=== PATIENT | female | born 1975 | race Caucasian/White ===

== ENCOUNTER 2018-12-13 09:33 | Emergency (ER) | payer BC, SELFPAY ==
[2018-12-13] VITALS (46 sets, daily range): BP systolic 113–172; BP diastolic 66–120; PULSE 70–108; RESP 7–29; TEMP 36.8–37.2; O2SAT 96–100
--- NOTE | 2018-12-13 09:47 | W.ED.GENAD ---
Discharge Plan Disposition Patient Disposition: HOME Condition: Stable Discharge Details Chief Complaint: Chest Pain Clinical Impression: Chest pain, Arm pain, Leg pain Primary Care Provider: Cristine Howard ED Provider: Leigh Watkins Home Meds and New Rx's Prescriptions: No Action No Known Home Meds RF: 0 Discharge Instructions Instructions: Chest Pain (ED), Leg Pain (ED) Additional Instructions: Please return immediately to the emergency department if you develop any new or worsening symptoms or if you become otherwise concerned. It is extremely important that you make an appointment to be seen soon as possible by a neurologist at [facility], by your primary care doctor, and also that you have an outpatient stress test performed this week as we discussed. Referrals: Cristine Howard MD, [place] [Primary Care Provider] - Discharge Data Discharge Date/Time-TO BE ENTERED AT DEPARTURE: 12/13/18 14:40 Medical Decision Making Kim Fallon is a 33-year-old woman without history of major medical problems who presented to the emergency department complaining left upper arm pain, left lateral chest pain, and left medial thigh pain occurring concurrently and intermittently over the past 2 weeks, nonexertional. On exam patient is well and nontoxic appearing. Benign cardiopulmonary exam. Benign exam of the extremities. Nonfocal neurologic exam. Concern for ACS versus PE versus musculoskeletal etiology versus other. Exam/history is not consistent with acute aortic pathology, septic joint, sepsis, CVA. I discussed the patient with Dr. Coffey neurology, who agreed with plan for MRI of the brain given unilateral symptoms affecting 2 limbs, however I do have a low suspicion for neurologic process given history and exam. Plan for EKG, chest x-ray, screening labs, telemetry. If initial work-up negative, plan for repeat troponin and repeat EKG. Also plan for aspirin nitroglycerin. Patient refuses test, states that she has an IUD and her has a vasectomy, declines to have this testing done by . Patient also declines to have MRI, states that she had vague neurologic symptoms several years ago for which she was evaluated at [facility], negative results at that time. Patient reports that she would rather follow-up with neurology at [facility]. Patient received nitroglycerin, reports that there was no change in her symptoms and declines further nitroglycerin. She declines other pain medication at this time. We will continue to monitor. X-ray negative, troponin negative, will repeat troponin and EKG. Repeat troponin negative, first EKG with [address] depression V3 V4 resolved on repeat EKG, suspect rate related given no change in patient symptoms and patient initially tachycardic. Patient with low risk for ACS. Plan for outpatient stress testing, patient placed on list for preapproval for stress testing, stress test ordered. Lengthy discussion with patient regarding return to emergency department cautions, importance of outpatient follow-up, and home care. Patient was discharged home with a clear plan for outpatient follow-up. Patient verbalized understanding plan was amenable. All questions were answered. Medical Records Medical records reviewed: Yes I reviewed the patient's medical records. Imaging Data Radiologic Study: Attestation: I personally reviewed and interpreted this imaging study as follows: Radiologist's impression: PA AND LATERAL CHEST: Comparison is made with 10/08/15. The heart is normal in size. The lungs are clear. The mediastinal structures and pleura appear intact. CONCLUSION: Normal chest. Lab Data Lab results reviewed: Yes I reviewed the patient's lab results. Laboratory Tests Range/Units 12/13/18 12/13/18 12/13/18 09:50 09:50 09:50 WBC (4.4-10.8) k/cumm 7.05 RBC (4.00-5.20) m/cumm 5.02 Hgb (12.0-15.5) g/dL 14.6 Hct (36.0-46.0) % 43.6 MCV (80-95) fL 86.9 MCH (27.0-33.0) pg 29.1 MCHC (32.0-36.0) g/dL 33.5 RDW (11.7-14.6) % 12.5 Plt Count (130-400) x1000/uL 330 MPV (8.0-11.0) fL 9.1 Immature Gran % 0.1 Neutrophils % 64.9 Lymphocytes % 28.9 Monocytes % 5.2 Eosinophils % 0.6 Basophils % 0.3 Absolute Neutrophils (1.2-6.7) k/cumm 4.57 Absolute Lymphocytes (1.2-3.4) k/cumm 2.04 Absolute Monocytes (0.11-0.7) k/cumm 0.37 Absolute Eosinophils (0.0-0.7) k/cumm 0.04 Absolute Basophils (0.0-0.2) k/cumm 0.02 D-Dimer (<500) ng/mlFEU 272 Sodium (136-145) mmol/L 139 Potassium (3.5-5.1) mmol/L 3.6 Chloride (98-107) mmol/L 102 Carbon Dioxide (21.0-32.0) mmol/L 28.7 Anion Gap (3-11) mmol/L 8.3 BUN (7-18) mg/dL 14 Creatinine (0.55-1.02) mg/dL 0.89 Estimated GFR/1.73 m2 (mL/min/1.73m2) >= 60.00 Glucose (70-100) mg/dL 89 Calcium (8.5-10.1) mg/dL 8.9 Magnesium (1.8-2.4) mg/dL 1.9 Total Bilirubin (0.2-1.0) mg/dL 0.6 AST (15-37) U/L 15 ALT (12-78) U/L 18 Alkaline Phosphatase (46-116) U/L 62 Troponin I (0.00-0.06) ng/mL < 0.02 NT-Pro-B Natriuret Pep ( - 299) pg/mL 115 Total Protein (6.4-8.2) g/dL 7.5 Albumin (3.4-5.0) g/dL 4.4 Urine Color (Yellow) Urine Clarity Urine pH (5-8) Ur Specific [place] (1.005-1.025) Urine Protein (Negative) mg/dL Urine Ketones (Negative) mg/dL Urine Blood (Negative) Urine Nitrite (Negative) Urine Bilirubin (Negative) Urine Urobilinogen (Up TO 0.2) EU/dL Ur Leukocyte Esterase (Negative) Urine Glucose (Negative) mg/dL Range/Units 12/13/18 12/13/18 11:30 13:00 WBC (4.4-10.8) k/cumm RBC (4.00-5.20) m/cumm Hgb (12.0-15.5) g/dL Hct (36.0-46.0) % MCV (80-95) fL MCH (27.0-33.0) pg MCHC (32.0-36.0) g/dL RDW (11.7-14.6) % Plt Count (130-400) x1000/uL MPV (8.0-11.0) fL Immature Gran % Neutrophils % Lymphocytes % Monocytes % Eosinophils % Basophils % Absolute Neutrophils (1.2-6.7) k/cumm Absolute Lymphocytes (1.2-3.4) k/cumm Absolute Monocytes (0.11-0.7) k/cumm Absolute Eosinophils (0.0-0.7) k/cumm Absolute Basophils (0.0-0.2) k/cumm D-Dimer (<500) ng/mlFEU Sodium (136-145) mmol/L Potassium (3.5-5.1) mmol/L Chloride (98-107) mmol/L Carbon Dioxide (21.0-32.0) mmol/L Anion Gap (3-11) mmol/L BUN (7-18) mg/dL Creatinine (0.55-1.02) mg/dL Estimated GFR/1.73 m2 (mL/min/1.73m2) Glucose (70-100) mg/dL Calcium (8.5-10.1) mg/dL Magnesium (1.8-2.4) mg/dL Total Bilirubin (0.2-1.0) mg/dL AST (15-37) U/L ALT (12-78) U/L Alkaline Phosphatase (46-116) U/L Troponin I (0.00-0.06) ng/mL < 0.02 NT-Pro-B Natriuret Pep ( - 299) pg/mL Total Protein (6.4-8.2) g/dL Albumin (3.4-5.0) g/dL Urine Color (Yellow) Yellow Urine Clarity Clear Urine pH (5-8) 6.5 Ur Specific [place] (1.005-1.025) 1.015 Urine Protein (Negative) mg/dL Negative Urine Ketones (Negative) mg/dL Negative Urine Blood (Negative) Negative Urine Nitrite (Negative) Negative Urine Bilirubin (Negative) Negative Urine Urobilinogen (Up TO 0.2) EU/dL 0.2 Ur Leukocyte Esterase (Negative) Negative Urine Glucose (Negative) mg/dL Negative ECG Data Attestation: I personally reviewed and interpreted this ECG (s) as follows: Interpretation: EKG shows ST 109, nl axis, STD 1mm V3, V4, non-diagnostic EKG EKG #2 shows sinus rhythm 78, nl axis, ST changes resolved HPI General Mode of arrival: ambulatory. Date/Time Provider Initiated Documentation: 12/13/18 09:47. Limitations to Documentation: no limitations. Information obtained by: patient, RN notes reviewed and old records reviewed. HPI Narrative: Kim Fallon is a 43 y/o woman without reported h/o medical problems presenting to the emergency department with left arm pain, left chest pain. Pt reports that she has had two weeks of intermittent left arm and left chest pain. Pt reports that pain is in her left upper arm and left lateral chest, lateral to breast. Pain is heaviness/aching sensation. Pain is non-exertional, non-pleuritic. No known modifiers. Pt reports that she wakes up in the morning with pain, and it lasts for hours at a time. Has been persistent since waking this am. She reports some overall improvement since onset two weeks ago. Pt also reports that she has had some heaviness in her left medial thigh as well that seems to coincide with arm pain. No modifiers. No known trauma. No other recent illness, has been eating and drinking as usual. No recent travel. Related Data Home Medications Medication Instructions Recorded Confirmed Unknown [No Known Home Meds] 12/13/18 12/13/18 Allergies Allergy/AdvReac Type Severity Reaction Status Date / Time No Known Allergies Allergy Unverified 12/13/18 09:56 Review of Systems Review of Systems Constitutional: denies fevers Eyes: denies eye pain ENT: denies facial pain, dental pain, sore throat Cardiovascular: denies edema, reports chest pain Respiratory: denies SOB, cough GI: denies abdominal pain, vomiting, diarrhea : denies flank pain MSK: denies back pain, neck pain, arthralgias, reports myalgias left arm and left thigh Skin: denies rash, swelling Neuro: denies headaches, numbness, weakness PFSH Social History Smoking/Tobacco Use Status: Never Alcohol Intake: current Alcohol Intake frequency: a few times a month Drug use: Never Do you feel safe at home: Yes Do you feel safe in your relationship?: Yes Exam Narrative Exam Narrative: Constitutional: well and [id number], pleasant, conversing normally HENT: head atraumatic/normocephalic/normal inspection, mucous membranes moist Eyes: conjunctiva normal, sclera normal, pupils 3mm b/l Neck: no stridor, normal ROM, trachea midline Chest: normal inspection, no TTP in area of pain lateral to left breast, no overlying skin changes Resp: normal work of breathing, LCTAB Cardio: normal rate, normal rhythm, no murmur appreciated GI: abdomen soft, non-tender, non-distended Back: normal inspection, no rash Skin: warm, dry, normal color, no rash Neuro: alert, not altered, cranial nerves grossly non-focal, normal tone, motor 5 out of 5 throughout, normal sensation Ext: no edema legs or thighs, no edema of the left arm, DP and radial pulses intact and symmetric, no tenderness to palpation of the left thigh in area of pain, left arm nontender to palpation, range of motion left arm and leg intact and symmetric Psych: normal mood, normal affect, normal behavior
--- NOTE | 2018-12-13 10:05 | DI.RAD_ITS ---
SYMPTOM/DIAGNOSIS: CHEST PAIN PA AND LATERAL CHEST: Comparison is made with 10/08/15. The heart is normal in size. The lungs are clear. The mediastinal structures and pleura appear intact. CONCLUSION: Normal chest.
[2018-12-13 10:14] LABS: Abs Immature Grans 0.01 k/cumm (0.0-0.09); Absolute Basophil Count 0.02 k/cumm (0.0-0.2); Absolute Eosinophil Count 0.04 k/cumm (0.0-0.7); Absolute Lymphocyte Count 2.04 k/cumm (1.2-3.4); Absolute Monocyte Count 0.37 k/cumm (0.11-0.7); Absolute Neutrophil Count 4.57 k/cumm (1.2-6.7); Basophils % 0.3; Eosinophils % 0.6; HCT 43.6 % (36.0-46.0); HGB 14.6 g/dL (12.0-15.5); Immature Grans % 0.1; Lymphocytes % 28.9; Mean Corp. HGB Concentration 33.5 g/dL (32.0-36.0); Mean Corpuscular Hemoglobin 29.1 pg (27.0-33.0); Mean Corpuscular Volume 86.9 fL (80-95); Mean Platelet Volume 9.1 fL (8.0-11.0); Monocytes % 5.2; Neutrophils % 64.9; Platelet Count 330 x1000/uL (130-400); RBC 5.02 m/cumm (4.00-5.20); RBC Distribution Width 12.5 % (11.7-14.6); White Blood Cell Count 7.05 k/cumm (4.4-10.8)
[2018-12-13 10:36] LABS: ALT 18 U/L (12-78); AST 15 U/L (15-37); Albumin 4.4 g/dL (3.4-5.0); Alkaline Phosphatase 62 U/L (46-116); Anion Gap 8.3 mmol/L (3-11); BUN 14 mg/dL (7-18); Bilirubin, Total 0.6 mg/dL (0.2-1.0); CO2 28.7 mmol/L (21.0-32.0); CREATININE 0.89 mg/dL (0.55-1.02); Calcium 8.9 mg/dL (8.5-10.1); Chloride 102 mmol/L (98-107); Glucose 89 mg/dL (70-100); Magnesium 1.9 mg/dL (1.8-2.4); NT-proBNP 115 pg/mL; Potassium 3.6 mmol/L (3.5-5.1); Sodium 139 mmol/L (136-145); Total Protein 7.5 g/dL (6.4-8.2)
[2018-12-13] MEDS: Aspirin 81 MG CHEW 324 MG CH (10:37)
[2018-12-13 10:38] LABS: Troponin I < 0.02 ng/mL (0.00-0.06)
[2018-12-13 10:44] LABS: D-Dimer 272 ng/mlFEU (<500)
[2018-12-13 11:37] LABS: Bilirubin Negative (Negative); Blood Negative (Negative); Clarity Clear; Glucose Negative (Negative); Ketones Negative (Negative); Leukocyte Esterase Negative (Negative); Nitrite Negative (Negative); Specific Gravity 1.015 (1.005-1.025); Urobilinogen 0.2 EU/dL (Up TO 0.2); pH 6.5 (5-8)
[2018-12-13 13:24] LABS: Troponin I < 0.02 ng/mL (0.00-0.06)
--- NOTE | 2018-12-14 21:49 | ED.GENADUL_ITS ---
Discharge Plan Disposition Patient Disposition: HOME Condition: Stable Discharge Details Chief Complaint: Chest Pain Clinical Impression: Chest pain, Arm pain, Leg pain Primary Care Provider: Cristine Howard ED Provider: Leigh Watkins Home Meds and New Rx's Prescriptions: No Action No Known Home Meds RF: 0 Discharge Instructions Instructions: Chest Pain (ED), Leg Pain (ED) Additional Instructions: Please return immediately to the emergency department if you develop any new or worsening symptoms or if you become otherwise concerned. It is extremely important that you make an appointment to be seen soon as possible by a neurologist at [facility], by your primary care doctor, and also that you have an outpatient stress test performed this week as we discussed. Referrals: Cristine Howard MD, [place] [Primary Care Provider] - Discharge Data Discharge Date/Time-TO BE ENTERED AT DEPARTURE: 12/13/18 14:40 Medical Decision Making Kim Fallon is a 33-year-old woman without history of major medical problems who presented to the emergency department complaining left upper arm pain, left lateral chest pain, and left medial thigh pain occurring concurrently and intermittently over the past 2 weeks, nonexertional. On exam patient is well and nontoxic appearing. Benign cardiopulmonary exam. Benign exam of the extremities. Nonfocal neurologic exam. Concern for ACS versus PE versus musculoskeletal etiology versus other. Exam/history is not consistent with acute aortic pathology, septic joint, sepsis, CVA. I discussed the patient with Dr. Coffey neurology, who agreed with plan for MRI of the brain given unilateral symptoms affecting 2 limbs, however I do have a low suspicion for neurologic process given history and exam. Plan for EKG, chest x-ray, screening labs, telemetry. If initial work-up negative, plan for repeat troponin and repeat EKG. Also plan for aspirin nitroglycerin. Patient refuses test, states that she has an IUD and her has a vasectomy, declines to have this testing done by . Patient also declines to have MRI, states that she had vague neurologic symptoms several years ago for which she was evaluated at [facility], negative results at that time. Patient reports that she would rather follow-up with neurology at [facility]. Patient received nitroglycerin, reports that there was no change in her symptoms and declines further nitroglycerin. She declines other pain medication at this time. We will continue to monitor. X-ray negative, troponin negative, will repeat troponin and EKG. Repeat troponin negative, first EKG with [address] depression V3 V4 resolved on repeat EKG, suspect rate related given no change in patient symptoms and patient initially tachycardic. Patient with low risk for ACS. Plan for outpatient stress testing, patient placed on list for preapproval for stress testing, stress test ordered. Lengthy discussion with patient regarding return to emergency department cautions, importance of outpatient follow-up, and home care. Patient was discharged home with a clear plan for outpatient follow-up. Patient verbalized understanding plan was amenable. All questions were answered. Medical Records Medical records reviewed: Yes I reviewed the patient's medical records. Imaging Data Radiologic Study: Attestation: I personally reviewed and interpreted this imaging study as follows: Radiologist's impression: PA AND LATERAL CHEST: Comparison is made with 10/08/15. The heart is normal in size. The lungs are clear. The mediastinal structures and pleura appear intact. CONCLUSION: Normal chest. Lab Data Lab results reviewed: Yes I reviewed the patient's lab results. Laboratory Tests Range/Units 12/13/18 12/13/18 12/13/18 09:50 09:50 09:50 WBC (4.4-10.8) k/cumm 7.05 RBC (4.00-5.20) m/cumm 5.02 Hgb (12.0-15.5) g/dL 14.6 Hct (36.0-46.0) % 43.6 MCV (80-95) fL 86.9 MCH (27.0-33.0) pg 29.1 MCHC (32.0-36.0) g/dL 33.5 RDW (11.7-14.6) % 12.5 Plt Count (130-400) x1000/uL 330 MPV (8.0-11.0) fL 9.1 Immature Gran % 0.1 Neutrophils % 64.9 Lymphocytes % 28.9 Monocytes % 5.2 Eosinophils % 0.6 Basophils % 0.3 Absolute Neutrophils (1.2-6.7) k/cumm 4.57 Absolute Lymphocytes (1.2-3.4) k/cumm 2.04 Absolute Monocytes (0.11-0.7) k/cumm 0.37 Absolute Eosinophils (0.0-0.7) k/cumm 0.04 Absolute Basophils (0.0-0.2) k/cumm 0.02 D-Dimer (<500) ng/mlFEU 272 Sodium (136-145) mmol/L 139 Potassium (3.5-5.1) mmol/L 3.6 Chloride (98-107) mmol/L 102 Carbon Dioxide (21.0-32.0) mmol/L 28.7 Anion Gap (3-11) mmol/L 8.3 BUN (7-18) mg/dL 14 Creatinine (0.55-1.02) mg/dL 0.89 Estimated GFR/1.73 m2 (mL/min/1.73m2) >= 60.00 Glucose (70-100) mg/dL 89 Calcium (8.5-10.1) mg/dL 8.9 Magnesium (1.8-2.4) mg/dL 1.9 Total Bilirubin (0.2-1.0) mg/dL 0.6 AST (15-37) U/L 15 ALT (12-78) U/L 18 Alkaline Phosphatase (46-116) U/L 62 Troponin I (0.00-0.06) ng/mL < 0.02 NT-Pro-B Natriuret Pep ( - 299) pg/mL 115 Total Protein (6.4-8.2) g/dL 7.5 Albumin (3.4-5.0) g/dL 4.4 Urine Color (Yellow) Urine Clarity Urine pH (5-8) Ur Specific [place] (1.005-1.025) Urine Protein (Negative) mg/dL Urine Ketones (Negative) mg/dL Urine Blood (Negative) Urine Nitrite (Negative) Urine Bilirubin (Negative) Urine Urobilinogen (Up TO 0.2) EU/dL Ur Leukocyte Esterase (Negative) Urine Glucose (Negative) mg/dL Range/Units 12/13/18 12/13/18 11:30 13:00 WBC (4.4-10.8) k/cumm RBC (4.00-5.20) m/cumm Hgb (12.0-15.5) g/dL Hct (36.0-46.0) % MCV (80-95) fL MCH (27.0-33.0) pg MCHC (32.0-36.0) g/dL RDW (11.7-14.6) % Plt Count (130-400) x1000/uL MPV (8.0-11.0) fL Immature Gran % Neutrophils % Lymphocytes % Monocytes % Eosinophils % Basophils % Absolute Neutrophils (1.2-6.7) k/cumm Absolute Lymphocytes (1.2-3.4) k/cumm Absolute Monocytes (0.11-0.7) k/cumm Absolute Eosinophils (0.0-0.7) k/cumm Absolute Basophils (0.0-0.2) k/cumm D-Dimer (<500) ng/mlFEU Sodium (136-145) mmol/L Potassium (3.5-5.1) mmol/L Chloride (98-107) mmol/L Carbon Dioxide (21.0-32.0) mmol/L Anion Gap (3-11) mmol/L BUN (7-18) mg/dL Creatinine (0.55-1.02) mg/dL Estimated GFR/1.73 m2 (mL/min/1.73m2) Glucose (70-100) mg/dL Calcium (8.5-10.1) mg/dL Magnesium (1.8-2.4) mg/dL Total Bilirubin (0.2-1.0) mg/dL AST (15-37) U/L ALT (12-78) U/L Alkaline Phosphatase (46-116) U/L Troponin I (0.00-0.06) ng/mL < 0.02 NT-Pro-B Natriuret Pep ( - 299) pg/mL Total Protein (6.4-8.2) g/dL Albumin (3.4-5.0) g/dL Urine Color (Yellow) Yellow Urine Clarity Clear Urine pH (5-8) 6.5 Ur Specific [place] (1.005-1.025) 1.015 Urine Protein (Negative) mg/dL Negative Urine Ketones (Negative) mg/dL Negative Urine Blood (Negative) Negative Urine Nitrite (Negative) Negative Urine Bilirubin (Negative) Negative Urine Urobilinogen (Up TO 0.2) EU/dL 0.2 Ur Leukocyte Esterase (Negative) Negative Urine Glucose (Negative) mg/dL Negative ECG Data Attestation: I personally reviewed and interpreted this ECG (s) as follows: Interpretation: EKG shows ST 109, nl axis, STD 1mm V3, V4, non-diagnostic EKG EKG #2 shows sinus rhythm 78, nl axis, ST changes resolved HPI General Mode of arrival: ambulatory . Date/Time Provider Initiated Documentation: 12/13/18 09:47 . Limitations to Documentation: no limitations . Information obtained by: patient, RN notes reviewed and old records reviewed . HPI Narrative: Kim Fallon is a 43 y/o woman without reported h/o medical problems presenting to the emergency department with left arm pain, left chest pain. Pt reports that she has had two weeks of intermittent left arm and left chest pain. Pt reports that pain is in her left upper arm and left lateral chest, lateral to breast. Pain is heaviness/aching sensation. Pain is non- exertional, non-pleuritic. No known modifiers. Pt reports that she wakes up in the morning with pain, and it lasts for hours at a time. Has been persistent s wicho waking this am. She reports some overall improvement since onset two weeks ago. Pt also reports that she has had some heaviness in her left medial thigh as well that seems to coincide with arm pain. No modifiers. No known trauma. No other recent illness, has been eating and drinking as usual. No recent travel. Related Data Home Medications Medication Instructions Recorded Confirmed Unknown [No Known Home Meds] 12/13/18 12/13/18 Allergies Allergy/AdvReac Type Severity Reaction Status Date / Time No Known Allergies Allergy Unverified 12/13/18 09:56 Review of Systems Review of Systems Constitutional: denies fevers Eyes: denies eye pain ENT: denies facial pain, dental pain, sore throat Cardiovascular: denies edema, reports chest pain Respiratory: denies SOB, cough GI: denies abdominal pain, vomiting, diarrhea : denies flank pain MSK: denies back pain, neck pain, arthralgias, reports myalgias left arm and left thigh Skin: denies rash, swelling Neuro: denies headaches, numbness, weakness PFSH Social History Smoking/Tobacco Use Status: Never Alcohol Intake: current Alcohol Intake frequency: a few times a month Drug use: Never Do you feel safe at home: Yes Do you feel safe in your relationship?: Yes Exam Narrative Exam Narrative: Constitutional: well and [id number], pleasant, conversing normally HENT: head atraumatic/normocephalic/normal inspection, mucous membranes moist Eyes: conjunctiva normal, sclera normal, pupils 3mm b/l Neck: no stridor, normal ROM, trachea midline Chest: normal inspection, no TTP in area of pain lateral to left breast, no overlying skin changes Resp: normal work of breathing, LCTAB Cardio: normal rate, normal rhythm, no murmur appreciated GI: abdomen soft, non-tender, non-distended Back: normal inspection, no rash Skin: warm, dry, normal color, no rash Neuro: alert, not altered, cranial nerves grossly non-focal, normal tone, motor 5 out of 5 throughout, normal sensation Ext: no edema legs or thighs, no edema of the left arm, DP and radial pulses intact and symmetric, no tenderness to palpation of the left thigh in area of pain, left arm nontender to palpation, range of motion left arm and leg intact and symmetric Psych: normal mood, normal affect, normal behavior
== END 2018-12-13 14:40 | disposition home or self-care (01) ==
PROVIDERS: Emergency Provider Student in an Organized Health Care Education/Training Program; PCP Family Medicine
DX: S52.572A Other intraarticular fracture of lower end of left radius, initial encounter for closed fracture (principal); I95.9 Hypotension, unspecified; I44.4 Left anterior fascicular block; I47.1 Supraventricular tachycardia; I10 Essential (primary) hypertension
CPT/HCPCS: 25600; 36415; 51701; 80053; 93005; 99285; 71046; 81003; 83735; 83880; 84484; 85025; 85379; 93010

== ENCOUNTER 2018-12-23 00:46 | Outpatient (CLI) | payer BC, SELFPAY ==
--- NOTE | 2018-12-23 09:30 | ETT_ITS ---
*[facility]* *[facility]* [address] [place] [address] Stress Electrocardiography Jose protocol Date of study: 12/23/2018 *PATIENT PRESENTATION* Height: 172.7cm (68in) Blood Pressure: Weight: 63.6kg (140lb) BSA: 1.75m^2 Referring physician: Leigh Watkins Ordering physician: Leigh Watkins Impressions: Normal study after maximal exercise. Summary: 1. Stress ECG conclusions: The stress ECG is negative. 2. Stress: There is a normal resting blood pressure with an appropriate response to stress. The patient experienced no chest pain during stress. Exercise capacity is above normal for age. Indication: R07.9. History: REASON FOR TESTING: ER VISIT FOR LEFT UPPER ARM PAIN, LEFT LATERAL CHEST PAIN AND LEFT MEDIAL THIGH PAIN. NM RULED OUT AT THAT TIME. PT DESCRIBED THE PAIN TO BE MORE PRESSURE THAN PAIN. THE SYMPTOMS HAVE BEEN INTERMITTANT FOR SEVERAL DAYS BEFORE THE ER VIST, AND CONTINUE TO BE PRESENT WITH VARYING INTENSITY. PMH: VAGUE NEUROLOGIC COMPLAINTS [place] [facility] [place]. FAMILY HX: FATHER- CVA IN 50'S, HYPERTENSION. SON- 13 YO WITH HYPERTENSION. SMOKING: NEVER. EXCERCISE: WALKS OR HIKES 2-3 DAYS/WEEK FOR 45 MINS. NO AVAILABLE CHOLESTEROL DATA. Risk factors: Family history of coronary artery disease. ALLERGIES: NKDA MEDICATIONS: NONE. Protocol: Jose protocol. Baseline ECG: LAST EKG 12/13/18- SINUS RHYTHM. TODAY'S EKG- SINUS RHYTHM HR 75. Stress protocol: + +---+ +----+ !Stage !HR !BP (mmHg) !Sat ! + +---+ +----+ !Baseline supine !75 !110/80 (90) !----! + +---+ +----+ !Baseline standing !88 !112/80 (91) !----! + +---+ +----+ !Stage I; 1.7mph, 10degrees; 3 min !101!120/88 (99) !100%! + +---+ +----+ !Stage II; 2.5mph, 12degrees; 3 min !128!122/88 (99) !----! + +---+ +----+ !Stage III; 3.4mph, 14degrees; 3 min!148!134/90 (105)!96% ! + +---+ +----+ !Recovery; 1 min !176!150/70 (97) !100%! + +---+ +----+ !Recovery; 3 min !101!138/80 (99) !----! + +---+ +----+ !Recovery; 6 min !94 !124/80 (95) !----! + +---+ +----+ * Stress results: Maximal heart rate during stress was 179bpm (102% of maximal predicted heart rate). The maximal predicted heart rate was 175bpm. There is a normal resting blood pressure with an appropriate response to stress. The rate-pressure product for the peak heart rate and blood pressure was 35355wd Hg/min. The patient experienced no chest pain during stress. Exercise capacity is above normal for age. Stress ECG: EXCERCISE TESTING ENDED IN 10 MINS, 22 SECS DUE TO MAX HR ACHIEVED AND FATIGUE . MAX HR WAS 179, 102% OF TARGET. NORMAL BLOOD PRESSURE RESPONSE. METS:12.39 ECTOPY: NONE ANGINA: NO REPORTED CHEST PAIN OR PRESSURE. ISCHEMIA: NO ISCHEMIC CHANGES NOTED. FUNCTIONAL CAPACITY: ABOVE AVERAGE CAPACITY. The stress ECG is negative. Study data: Hoa rTejo MD supervised and was readily available during the procedure. This study was interpreted by [facility]. Study status: Routine. Consent: The risks, benefits, and alternatives to the procedure were explained to the patient and informed consent was obtained. Procedure: Initial setup. A baseline ECG was recorded. Surface ECG leads and manual cuff blood pressure measurements were monitored. Heart sounds: Normal. Lung sounds: Normal. Treadmill exercise testing was performed using the Jose protocol. Study completion: The patient tolerated the procedure well and was discharged from the lab. Discharge: The patient left the laboratory in stable condition. Birthdate: Patient birthdate: 1975. Sex: Gender: female. Study date: Study date: 12/23/2018. Study time: 00:01 AM. Signature Documentation: The Stress ECG portion of this study was interpreted by Hoa Trejo MD. Electronically signed by oHa Trejo 12/23/2018 10:38
== END 2018-12-23 01:06 ==
PROVIDERS: PCP Family Medicine; Visit Provider Student in an Organized Health Care Education/Training Program
DX: R07.9 Chest pain, unspecified (principal)
CPT/HCPCS: 93017

== ENCOUNTER 2020-11-19 01:40 | Outpatient (CLI) | payer BC, SELFPAY ==
--- NOTE | 2020-11-19 09:00 | DI.MAMMO_ITS ---
EXAM: MAMMO SCREENING CLINICAL HISTORY: screening.Z12.39 TECHNIQUE: Mammograms were interpreted according to the usual protocol including computer analysis w [employer] CAD system, tomosynthesis and C-view imaging. COMPARISON: FINDINGS: The breasts are heterogeneously dense. Note is made of an area of nodularity measuring about 8 yeny meters diameter which is located in the inferior central portion the right breast, probably lateral t o the midline as identified on tomographic images. This is not ideally visualized on MLO view and is nonvisualized on CC view. Additional mammographic views including MLO spot compression view of the right breast recommended for further evaluation. No additional significant findings seen. No clumped microcalcification of either breast. IMPRESSION: Additional mammographic views of the right breast requested as described above to evaluate questionab le area of a irregular nodularity. Breast ultrasound may be indicated as well depending on the resul ts of the additional mammographic views. BI-RADS Cat 0 - Assessment Incomplete: Need additional imaging evaluation Breast Density - Category C - Heterogeneously dense
== END 2020-11-19 02:00 ==
PROVIDERS: PCP Student in an Organized Health Care Education/Training Program; Visit Provider Student in an Organized Health Care Education/Training Program
DX: Z12.31 Encounter for screening mammogram for malignant neoplasm of breast (principal); R92.8 Other abnormal and inconclusive findings on diagnostic imaging of breast
CPT/HCPCS: 77063; 77067

== ENCOUNTER 2020-11-23 04:04 | Outpatient (CLI) | payer BC, SELFPAY ==
--- NOTE | 2020-11-23 | DI.MAMMO_ITS ---
EXAM: MG MAMMO SCREEN CALL BACK UNI and U/S breast RT limited CLINICAL HISTORY: F/U MAMMO, RT BREAST NODULARITY,? IRREGULAR NODULARITY. TECHNIQUE: Craniocaudal and mediolateral oblique Full Field Digital Mammography views of the right b reast with Computer Aided Diagnosis followed by Tomosynthesis and right breast ultrasound. COMPARISON: Priors available for comparison. FINDINGS: Mammography/Tomosynthesis: Masses/Architectural Distortion: None seen. Microcalcifictions: No suspicious pleomorphic-type are seen. Skin Thickening/Nipple Retraction: None. Right breast US: Echotexture: Normal appearance of the glandular tissue. Shadowing: No suspicious foci. Cyst: Several cysts are seen within the right breast. No suspicious cysts are present. Solid lesions: None seen. Ductal dilation: None. IMPRESSION: 1. No evidence of malignancy is noted. 2. Unless there is more urgent need, follow-up screening mammography is recommended, as per [place] [employer] guidelines. 3. The findings were discussed with the patient on the date of the examination. BI-RADS Category 2 - Benign Findings Breast Density - Category C - Heterogeneously dense Breast density Category C or D implies that the patient has dense breast tissue. Dense breast tissue can make it harder to find cancer on a mammogram. Dense breast tissue is also associated with an incr eased risk of breast cancer. This information about the result of the mammogram report was provided to the patient to raise their awareness. Use this report when you speak with the patient about their risks for breast cancer, which includes their family history. At that time, you may recommend additional screening tests (Ultrasoun d or MRI) as these tests may add significant information. A negative radiographic report should not delay biopsy if a dominant or clinically suspicious mass is present. Up to ten percent of cancers are not identified on mammography. A negative report may reinforce clinical impression. Adenosis and dense breasts may obscure an underlying neoplasm. False positive reports average 6 to 10%. Patient will receive a letter notifying them of these results.
== END 2020-11-23 04:24 ==
PROVIDERS: PCP Student in an Organized Health Care Education/Training Program; Visit Provider Student in an Organized Health Care Education/Training Program
DX: Z12.31 Encounter for screening mammogram for malignant neoplasm of breast (principal); R92.8 Other abnormal and inconclusive findings on diagnostic imaging of breast; N60.11 Diffuse cystic mastopathy of right breast
CPT/HCPCS: 76642; 77063; 77067

== ENCOUNTER 2020-12-03 08:41 | Outpatient (CLI) | payer BC, SELFPAY ==
[2020-12-03 09:04] LABS: HGB 14.5 g/dL (11.2-15.7); MCH 29.5 pg (27.0-33.0); MCHC 33.7 % (32.0-36.0); MCV 87.4 fL (80-95); MPV 8.7 fL (8.0-11.0); Platelet Count 301 10^3/uL (130-400); RBC 4.92 10^6/uL (3.93-5.22); RDW 12.1 % (11.7-14.6); RDW-SD 38.9 fL; WBC 5.75 10^3/uL (4.4-10.8)
[2020-12-03 09:46] LABS: Anion Gap 4.2 mmol/L (3-11); BUN 20 mg/dL (7-18); CO2 29.8 mmol/L (21.0-32.0); CREATININE 0.8 mg/dL (0.55-1.02); Calcium 9.1 mg/dL (8.5-10.1); Chloride 106 mmol/L (98-107); Glucose 84 mg/dL (74-106); Potassium 4.4 mmol/L (3.5-5.1); Sodium 140 mmol/L (136-145)
[2020-12-03 10:01] LABS: Calculated LDL 113 mg/dL (<100); Cholesterol 203 mg/dL (<200); HDL Cholesterol 75 mg/dL (40-60); TSH (W/Ref FT4) 1.02 uIU/mL (0.36-3.74); Triglyceride 79 mg/dL (<150)
== END 2020-12-03 08:42 | disposition home or self-care (01) ==
PROVIDERS: PCP Student in an Organized Health Care Education/Training Program; Visit Provider Obstetrics & Gynecology
DX: R53.83 Other fatigue (principal); N93.8 Other specified abnormal uterine and vaginal bleeding; N92.0 Excessive and frequent menstruation with regular cycle; F41.8 Other specified anxiety disorders; N95.1 Menopausal and female climacteric states; Z13.1 Encounter for screening for diabetes mellitus; Z13.220 Encounter for screening for lipoid disorders
CPT/HCPCS: 36415; 80048; 80061; 85027; 84146; 84443

== ENCOUNTER 2020-12-18 16:25 | Outpatient (REF) | payer BC, SELFPAY ==
--- NOTE | 2020-12-18 15:55 | PAPFT_PTH ---
PATIENT: Kim Fallon LOC: INNO U#:[id number] AGE/SX: 45/F ROOM: RE12/18/[address]: Mary Gill DO : 1975 BED: DIS: 12/18/2020 SPEC #: [id number] RECD: 12/18/20 17:52 STATUS: INGE REQ #: [id number] TODD: 12/18/20 15:[address]: Mary Gill DEPT: [facility] Cytology RECD BY: Tawny Smalls ENTERED: 12/18/20 17:53 SP TYPE: PAPFT OTHR DR: Earlene Winston DO Tissues: 1 - CX/ENDOCX FOR PAP SMEARS Procedures: PAP THIN PREP/UVM Screening HPV DNA PROBE Comments: [id number]
== END 2020-12-18 16:26 | disposition home or self-care (01) ==
LOC: LBN 16:25
PROVIDERS: PCP Student in an Organized Health Care Education/Training Program; Visit Provider Obstetrics & Gynecology
DX: Z12.4 Encounter for screening for malignant neoplasm of cervix (principal); Z11.51 Encounter for screening for human papillomavirus (HPV)
CPT/HCPCS: 88142; 87624

== ENCOUNTER → 2022-01-08 03:24 | Outpatient (CLI) | payer BC, SELFPAY ==
--- NOTE | 2022-01-08 08:15 | DI.MAMMO_ITS ---
Exam(s) MAMMO SCREENING EXAM: MAMMO SCREENING CLINICAL HISTORY: screening, Z12.39 TECHNIQUE: Bilateral full field digital CC and MLO mammographic images were obtained with 3D tomosyn thesis and utilizing computer aided detection (CAD). COMPARISON: Available for comparison. FINDINGS: Masses/Architectural Distortion: There is a focal asymmetry in the medial right breast on the cranioc audad view. Microcalcifications: No suspicious pleomorphic-type are seen. Skin Thickening/Nipple Retraction: None. IMPRESSION: 1. Focal asymmetry in the medial right breast on the craniocaudad view. 2. This area should be further evaluated with a spot compression view. Ultrasound may be indicated a t that time. BI-RADS Category 0 - Assessment Incomplete: Need additional imaging evaluation Breast Density - Category C - Heterogeneously dense Breast density category C or D implies that the patient has dense breast tissue. Dense breast tissue is very common and is not abnormal but dense breast tissue can make it harder to find cancer on a ma mmogram. Also, dense breast tissue may increase their breast cancer risk. This information about the result of the mammogram report was provided to the patient to raise their awareness. Use this report when you speak with the patient about their risks for breast cancer, which includes their family hist ory. At that time, you may recommend for more screening tests (Ultrasound or MRI) as they might be us eful based on their risk. A negative radiographic report should not delay biopsy if a dominant or clinically suspicious mass is present. Up to ten percent of cancers are not identified on mammography. A negative report may reinforce clinical impression. Adenosis and dense breasts may obscure an underlying neoplasm. False positive reports average 6 to 10%. Patient will receive a letter notifying them of these results.
== END ==
PROVIDERS: PCP Student in an Organized Health Care Education/Training Program; Visit Provider Student in an Organized Health Care Education/Training Program
DX: Z12.31 Encounter for screening mammogram for malignant neoplasm of breast (principal); N64.89 Other specified disorders of breast
CPT/HCPCS: 77063; 77067

== ENCOUNTER → 2022-01-16 01:10 | Outpatient (CLI) | payer BC, SELFPAY ==
--- NOTE | 2022-01-16 | DI.US_ITS ---
Exam(s) MG MAMMO SCREEN CALL BACK UNI US BREAST RT COMPLETE EXAM: MG MAMMO SCREEN CALL BACK UNI- RIGHT AND COMPLETE RIGHT BREAST ULTRASOUND CLINICAL HISTORY: F/U ABNL MAMMO, FOCAL ASYMMETRY IN MEDIAL RT BREAST. TECHNIQUE: Unilateral spot mammographic images obtained with 3D tomosynthesisand utilizing computer aided detection (CAD). . Complete RIGHT breast Ultrasound was also performed, including all 4 quadrants, the retroareolar paulie on, and the ipsilateral axilla. COMPARISON: Prior mammograms were reviewed. This additional imaging was performed due to findings described on the recent screening mammogram of . FINDINGS: DIAGNOSTIC RIGHT BREAST MAMMOGRAM: Additional mammographic views performed todayis somewhat equivocal as to whether this nodule persists . I note that on the prior exaggerated right CC view it is less concerning. COMPLETE RIGHT BREAST ULTRASOUND: There is no evidence of solid or significant cystic findings in the medial aspect of the breast to co rrespond to the possible finding on the mammogram. Laterally at the 8 o'clock position there are 2 small benign microcysts noted measuring 4 millimeters each. In the retroareolar region there is an 11 x 4 millimeter benign cyst. No other findings in the 4 quadrants of the right breast. Ultrasound of the right axilla was negative for significant adenopathy. IMPRESSION: Benign findings as described above. Appropriate follow-up is repeat right breast MAMMOGRAM in 6 months. The patient was informed of these findings and recommendations prior to leaving the department today. BI-RADS Category 3 - 6 month - Probably Benign Finding: Recommend follow-up mammography in 6 months Breast Density - Category C - Heterogeneously dense Breast density Category C or D implies that the patient has dense breast tissue. Dense breast tissue can make it harder to find cancer on a mammogram. Dense breast tissue is also associated with an incr eased risk of breast cancer. This information about the result of the mammogram report was provided to the patient to raise their awareness. Use this report when you speak with the patient about their risks for breast cancer, which includes their family history. At that time, you may recommend additional screening tests (Ultrasoun d or MRI) as these tests may add significant information. A negative radiographic report should not delay biopsy if a dominant or clinically suspicious mass is present. Up to ten percent of cancers are not identified on mammography. A negative report may reinforce clinical impression. Adenosis and dense breasts may obscure an underlying neoplasm. False positive reports average 6 to 10%. Patient will receive a letter notifying them of these results.
== END ==
PROVIDERS: PCP Student in an Organized Health Care Education/Training Program; Visit Provider Student in an Organized Health Care Education/Training Program
DX: Z12.31 Encounter for screening mammogram for malignant neoplasm of breast (principal); R92.8 Other abnormal and inconclusive findings on diagnostic imaging of breast; N60.11 Diffuse cystic mastopathy of right breast
CPT/HCPCS: 76642; 77063; 77067

== ENCOUNTER 2022-03-11 11:19 | Outpatient (REF) | payer BC, SELFPAY ==
--- NOTE | 2022-03-11 10:40 | ENDOMET_PTH ---
PATIENT: Kim Fallon LOC: NINO U#:[id number] AGE/SX: 46/F ROOM: RE03/11/[address]: Mary Gill DO : 1975 BED: DIS: 03/11/2022 SPEC #: [id number] RECD: 03/11/22 12:34 STATUS: SOUApril REQ #: [id number] OTDD: 03/11/22 10:[address]: Mary Gill DEPT: Surgical Specimen RECD BY: Tawny Smalls ENTERED: 03/11/22 12:35 SP TYPE: Endomet OTHR DR: Earlene Winston DO Tissues: 1 - ENDOMETRIUM BX/CURRETTE Procedures: GROSS AND MICRO LEVEL 4 Comments: [id number]
--- OUTSIDE RECORDS SUMMARY | 2022-03-11 11:40 | XMS_ITS | Encounter Summary ---
:1975 Author Organization [facility] [place] [address] Care Team Providers Name Role Phone Cristine Howard MD Primary Care Provider Reason for Visit Reason Onset Date Comments Post Op Post Op 05/11/2019 Encounter Details Date Type Department Care Team Description 05/11/2019 Office Visit Ophthalmology at [facility], Status post cataract extract ion and insertion of intraocular lens, right; [facility] MD [place] [address] [place] [address] [place] [address] OPHTHALMOLOGY [place] [id number] Social History Tobacco Use Types Packs/Day Years Used Date Never Smoker Smokeless Tobacco: Never Used Alcohol Use Standard Drinks/Week Comments Yes 0 (1 standard drink = 0.6 oz pure alcoho l) occ Alcohol Habits Answer Date Recorded How often do you have a drink containing alcohol? Not asked How many drinks containing alcohol do you have on a typical Not asked day when you are drinking? How often do you have six or more drinks on one occasion? No t asked Comment: occ 05/04/2019 Sex Assigned at Date Recorded Not on file documented as of this encounter Patient Instructions Patient InstructionsShameka Mondragon - 05/11/2019 9:00 AM EDT Images from the original note were not included. Drop Name: Cap Color: Dose: 1 Drop Eye: Ketorolac [place] 4 x daily until gone. right eye Prednisolone Acetate 1% [place] or [place] as follows: 3 x daily for 7 days Then 2x daily for 7 days Then 1x daily for 7 days Then stop. right eye Vigamox (Moxifloxacin) Jo STOP Ointment Small tube 2-3x daily as needed right eye Bring all drops with you to every eye appointment! There should be enough of these drops in the bottle provided to see you through this schedule. If you run out a few days before you are scheduled to end, it is okay to stop early. Use medications prescribed until told otherwise by your doctor ?? Wash your hands prior to instilling eye drops. ?? It does not matter what order you put the drops in. ?? Shake all drops well before instillation. ?? Wait 5-10 minutes between each drop ?? Do not panic if you feel you put too much in or even if you miss a dose-- just do the best you can. Too many drops are better than too few. ?? Preservative-free artificial tears can be used in case of irritation, dryness, or burning. These can be used in both eyes if desired Call the eye clinic at [phone] if you experience any unusual redness, pain, flashes or floaters, or vision changes. You can call this number day or night. After office hours, the flexboard operator will connect you with the doctor security control center operator. documented in this encounter Progress Notes Humphrey Avilez MD - 05/11/2019 9:00 AM EDT Assessment: Encounter Diagnoses Name Primary? Status post cataract extraction and insertion of intraocular lens, right ??? Pseudophakia Kim Fallon is s/p cataract surgery ~1 week in her right eye. Doing well with a normal 1 week post-operative appearance. Plan: - Prednisolone acetate 1% tid OD for 7 days, then bid OD for 7 days, then qd OD for 7 days. - d/c Moxifloxicin - Ketorolac qid in OD until the bottle runs out. - Post op precaution sheet and new medication directions reviewed and given to patient. Follow Up: 1 Month or as needed. Patient wishes to have CEIOL OS done, I discouraged this at this time given mild cataract. Recommendseeing Dr. Walsh for CTL OS to help. 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
--- OUTSIDE RECORDS SUMMARY | 2022-03-11 11:40 | XMS_ITS | Encounter Summary ---
:1975 Author Organization [facility] [place] [address] Care Team Providers Name Role Phone Cristine Howard MD Primary Care Provider Encounter Details Date Type Department Care Team Description 05/02/2019 Telephone Ophthalmology at [facility] [address] [facility] [phone] OPHTHALMOLOGY [place], [place] [address] (Wo rk) Social History Tobacco Use Types Packs/Day Years Used Date Never Smoker Smokeless Tobacco: Never Used Alcohol Use Standard Drinks/Week Comments Yes 0 (1 standard drink = 0.6 oz pure alcoho l) Sex Assigned at Date Recorded Not on file documented as of this encounter Miscellaneous Notes Telephone Encounter - Humphrey Avilez MD - 05/02/2019 4:08 PM EDT Called patient and discussed lens options. She has borderline astigmatism, not significant enough for a TORIC. Measurements are indicating a SN6AT2 - not in circulation. Recommend a monofocal lens. Patient is in agreement. documented in this encounter Plan of Treatment Not on filedocumented as of this encounter Visit Diagnoses Not on filedocumented in this encounter Care Teams Oyster Picker Relationship Specialty Start Date End Date Cristine Howard MD PCP - General Family Medicine 10/15/[address] [place] [address] documented as of this encounter
--- OUTSIDE RECORDS SUMMARY | 2022-03-11 11:40 | XMS_ITS | Encounter Summary ---
:1975 [place] [address] Care Team Providers Name Role Phone Cristine Howard MD Primary Care Provider Reason for Visit Auth/Cert Specialty Diagnoses / Procedures Referred By Contact Refer red To Contact Diagnoses Cataract Procedures PRO REMV CATARACT EXTRACAP,INSERT LENS,COMP CATARACT EXTRACTION, EXTRACAPSULAR, WITH LENS INSERTION, COMPLEX (WRVU 06.24) Referral ID Status Reason Start Date Expiration Date Visits Requ ested Visits Authorized [id number] 1 1 Encounter Details Date Type Department Care Team Description 05/04/2019 Surgery Outpatient Surgery Raghav CATARACT EXTRACTION, [facility] Nidia Eileen mcintyre MD EXTRACAPSULAR, WITH [facility] LENS INSERTION, COMPLEX [facility] (WRVU 06.24) [facility] [place] [address] [place] [address] [phone] (Wo rk) Social History Tobacco Use Types [...] on file documented as of this encounter Last Filed Vital Signs Vital Sign Reading Time Taken Comments Blood Pressure 134/84 05/04/2019 10:49 AM EDT Pulse 88 05/04/2019 10:49 AM EDT Temperature 37.5 ??C (99.5 ??F) 05/04/2019 10:49 AM EDT Respiratory Rate 14 05/04/2019 10:49 AM RN will ent er EDT Oxygen Saturation 98% 05/04/2019 10:49 AM EDT Inhaled Oxygen Concentration - - Weight 65.8 kg (145 lb) 05/04/2019 9:28 AM EDT Height 172.7 cm (5' 8) 05/04/2019 9:28 AM EDT Body Mass Index 22.05 05/04/2019 9:28 AM EDT documented in this encounter Discharge Instructions Discharge InstructionsCornelia Castillo RN - 05/04/2019 9:21 AM EDT Instructions following CATARACT surgery Dr. Avilez Section of ophthalmology [facility] [phone] - Wear either the eye shield or glasses of any kind 24 hours per day for the first week following surgery. - Your appointment tomorrow with Dr. Avilez will be at the [facility] in the main building at [facility]. Bring your Eye Kit to all postoperative visits. - Call you Primary Care Doctor or the Emergency Room for any non eye related medical issues. - It is normal to have a scratchy sensation or mild pain in your eye, but if you have any severe eyepain, vomiting or bleeding call [phone] and ask to speak to the ophthalmology doctor composition mixer. - Your eye will be red tomorrow - this is normal. -Do not bend so that your head goes below your heart for 2 weeks after surgery. -No heavy lifting - nothing greater than 5 pounds for 2 weeks after your surgery. - If you are on glaucoma drops, it is very important that you keep taking these as usual. - Start your post-op drops in 2 hours. Your post-op drops to take while awake are prednisolone acetate 1% (pink), Vigamox (cole) and Ketorolac (morrison) each four times daily. - Be sure to wait 5 minutes between each drop so that they don't dilute each other. - The prednisolone acetate drops (pink) need to be shaken 30 times. - Some of the drops, especially the Ketorolac (morrison), may sting. It can be helpful to refrigerate them to make them more comfortable. - After the first week drop instructions: Vigamox - stop using. Prednisolone - begin tapering your drops to 3x/day for 1 week, then 2x/day for 1 week, then 1x/day for 1 week, then STOP using. Ketoralac - 4x/day until they are gone. Moderate Sedation You may have received medication before and/or during your procedure, which affects your judgement and reaction time. Do not drive, operate machinery, drink alcoholic beverages, or make any legal decisions for 24 hours. Be careful on stairs, as you may be unsteady on your feet. You may eat a regular diet as tolerated. IV site -- slight redness, or tenderness is normal, you can use a warm compress. If tenderness and redness increases or foul drainage occurs, please contact your M. D. Questions or problems: M-F 8 am - 5pm call ophthalmology : [phone] After 5pm or on a weekend or holiday: call the [facility] suction operator and ask for the ophthalmology physician composition mixer. documented in this encounter Medications at Time of Discharge Medication Sig Dispensed Refills Start Date End Date levonorgestrel (MIRENA) 1 each by Intrauterine 0 20 mcg/24 hr (5 years) route Continuous IUD (Device). Expected removal date documented as of this encounter Progress Notes Cornelia Castillo RN - 05/04/2019 10:16 AM EDT Pt instructed to squeeze RN's hand if having pain, need to cough, etc. Pt instructed not to talk during procedure. Pain assessment unable to verbalize (non-verbal) but will indicate pain with hand squeeze, ask surgeon to pause and verbally assess pt. Date/Procedure: Meds Given Comments 05/04/19 right eye cataract extraction Midazolam 1 mg IV Tolerated well Discharge instructions and medications reviewed with patient. All questions answered and written copy sent home with patient. Eye care kit given to patient with instructions to bring kit and drops to all appointments. documented in this encounter H&P Notes Humphrey Avilez MD - 05/04/2019 9:38 AM EDT Images from the original note were not included. History and physical for PCP reviewed, no interval changes. Risks, benefits and alternatives of surgery revisited. Patient is keen to proceed with CEIOL OD. No significant changes to the patient's health recently. The patient is breathing comfortably, without cyanosis or use of accessory muscles. Vital signs are within acceptable parameters. The eyes are quiet without discharge or other signs of active infection. ?? Malampatti: 2 ASA: 1 ?? The sedation plan was reviewed the patient expressed understanding and agreement. ?? REFERENCES: ? ASA Score: I. Patient is a completely healthy fit patient. II. Patient has mild systemic disease. III. Patient has severe systemic disease that is not incapacitating. IV. Patient has incapacitating disease that is a constant threat to life. V. A moribund patient who is not expected to live 24 hour with or without surgery. documented in this encounter Miscellaneous Notes Op Note - Humphrey Avilez MD - 05/04/2019 10:47 AM EDT [facility] Operative Note Patient Name: Kim Fallon : 1975 Surgeon: Surgeon(s) and Role: * Humphrey Avilez MD - Primary Preoperative diagnosis: Cataract, Right eye Nuclear sclerotic cataract, dense, myopia Postoperative diagnosis: same as preoperative diagnosis HPI/Surgical Indications: Reduced visual acuity Procedure: CATARACT EXTRACTION, EXTRACAPSULAR, W/ LENS INSERTION, Right eye, Complex with tryphan blue staining Complications: None Blood loss: Minimal Anesthesia type: IV conscious sedation with topical block Implant: [id number] lens, 21.0 D power, placed in the capsular bag Procedure in detail: After the risks, benefits, and alternatives of the planned procedure had been discussed with the patient and the informed consent signed, the patient was taken back to the operating room suite. There, the patient was prepped and draped in the standard sterile ophthalmic fashion. Alid speculum was introduced into the operative eye. A paracentesis wound was created 60 degrees to the left of the planned temporal incision. Lidocaine was injected intracamerally. Filtered air followed by tryphan blye was injected into the right eye. Viscoat viscoelastic was injected intracamerally. The main temporal incision was then created using a 2.4 mm keratome. The anterior capsulotomy was then created using the combination of a cystotome and Utrata forceps. Hydrodissection was performed using a straight hydrodissection cannula. The nucleus was then divided in a groove and split technique. The nuclear fragments were then removed using the phacoemulsification handpiece. The remaining cortical and epinuclear material was then removed using the irrigation/aspiration handpiece. The capsular bag was filled with Provisc viscoelastic. The [id number] lens was then injected into the capsular bag usinga lens injection system. The remaining viscoelastic was then removed from the eye using the irrigation/aspiration handpiece. The wounds were then hydrated. With the wounds found not to be leaking, all viscoelastic removed from the anterior segment, and the lens centered in the capsular bag, the surgery was deemed concluded. All instrumentation was removed from the operative eye. The patient was then escorted to the post-anesthesia care unit having tolerated the procedure well without additional issues. I performed this surgery by myself without the assistance of a resident. Humphrey Avilez MD documented in this encounter Plan of Treatment Not on filedocumented as of this encounter Procedures Procedure Name Priority Date/Time Associated Diagnosis Comme nts CATARACT EXTRACTION, 05/04/2019 10:19 AM EDT Cataract EXTRACAPSULAR, WITH LENS INSERTION, COMPLEX (WRVU 11.08) documented in this encounter Visit Diagnoses Not on filedocumented in this encounter Administered Medications Inactive Administered Medications - up to 3 most recent administrations Medication Order MAR Action Action Date Dose Rate Site atropine injection 0.4 mg 0.4 mg, Intravenous, EVERY 5 MIN PRN, 2 doses, Startin g on Thu05/04/19 at 0921, Until Thu05/04/19 at 1303, Other, for he art rate less than 40 beats per minute., For 2 doses, Intra-Operative (Intra-Procedure), Routin e cyclopentolate (CYCLODRYL) 1 % ophthalmic Given 05/04/2019 9:45 AM EDT 1 drop solution 1 drop 1 drop, Right Eye, EVERY 5 MIN, 3 doses, First dose on Thu05/04/19 at 0945, Last dose on Thu05/04/19 at 0955, 1 drop to the operative eye every 5 minutes times 3. Start day of surgery. Do NOT place dilating drops in post-op kit!, Day of Surgery (Day of Procedure), Routine Given 05/04/2019 9:38 AM EDT 1 drop Given 05/04/2019 9:33 AM EDT 1 drop fentaNYL 50 mcg/mL multi-dose injection 25-50 mcg, Intravenous, EVERY 5 MIN PRN, Starting on Thu05/04/19 at 0921, Until Thu05/04/19 at 1303, Pain, Hold for respirat ory rate less than 8 breaths per minute. (maximum dose 200 mcg), Intra-Operative (Intra-Procedu re), Routine ketorolac tromethamine (ACULAR) 0.5 % Given 05/04/2019 9:45 AM E DT 1 drop ophthalmic solution 1 drop 1 drop, Right Eye, ONCE, 1 dose, On Thu05/04/19 at 0945, 1 drop to the operative eye once, start on day of surgery, Day of Surgery (Day of Procedure), Routine labetalol (NORMODYNE,TRANDATE) injection 2.5 mg 2.5 mg, Intravenous, EVERY 5 MIN PRN, 4 doses, Startin g on Thu05/04/19 at 0921, Until Thu05/04/19 at 1303, High Blood Pressure, systol ic blood pressure greater than 180 mmHg, Hold for heart rate less than 55 beats per minute. Call MD if ineffective after 4 doses., Intra-Operative (Intra-Pro cedure), Routine lactated ringers infusion New Bag 05/04/2019 9:57 AM EDT 1,000 mLs 100 mL/hr 1,000 mL, at 100 mL/hr, Intravenous, CONTINUOUS, Starting on Thu05/04/19 at 0945, Until Thu05/04/19 at 1303, Day of Surgery (Day of Procedure) lidocaine (XYLOCAINE) 10 mg/mL (1 %) inj ection 3 mg 3 mg (0.3 mL), Subcutaneous, ONCE PRN, 1 dose, Startin g on Thu05/04/19 at 0920, Until Thu05/04/19 at 1303, for discomfor t with PIV insertion, Day of Surgery (Day of Procedure), Routine midazolam (PF) (VERSED) multi-dose injection Given 9 10:22 AM EDT 1 mg 0.5-2 mg 0.5-2 mg, Intravenous, EVERY 5 MIN PRN, Starting on Thu05/04/19 at 0921, Until Thu05/04/19 at 1303, Sleep, Anxiety, Hold for delirium/agitation. (Maximum dose 5 mg)., Intra-Operative (Intra-Procedure), Routine moxifloxacin (VIGAMOX) 0.5 % ophthalmic Given 05/04/2019 9:58 AM EDT 1 drop solution 1 drop 1 drop, Right Eye, EVERY 5 MIN, 3 doses, First dose on Thu05/04/19 at 0945, Last dose on Thu05/04/19 at 0955, 1 drop to the operative eye every 5 minutes times 3. Start on the day of surgery. , Day of Surgery (Day of Procedure), Routine Given 05/04/2019 9:45 AM EDT 1 drop Given 05/04/2019 9:39 AM EDT 1 drop naloxone (NARCAN) injection 0.1 mg 0.1 mg, Intravenous, EVERY 2 MIN PRN, St arting on Thu05/04/19 at 0921, Until Thu05/04/19 at 1303, Opioid Reversal, Opiate induced overs edation or respiratory depression. (maximum dose of 0.8 mg), In tra-Operative (Intra-Procedure), Routine PHENYLephrine (MYDFRIN) 2.5 % ophthalmic Given 05/04/2019 9:45 A M EDT 1 drop solution 1 drop 1 drop, Right Eye, EVERY 5 MIN, 3 doses, First dose on Thu05/04/19 at 0945, Last dose on Thu05/04/19 at 0955, 1 drop to the operative eye every 5 minutes times 3. Start on the day of surgery. Do NOT place dilating drops in post-op kit!, Day of Surgery (Day of Procedure), Routine Given 05/04/2019 9:38 AM EDT 1 drop Given 05/04/2019 9:33 AM EDT 1 drop prednisoLONE acetate (PRED FORTE) 1 % Given 05/04/2019 9:45 AM E DT 1 drop ophthalmic suspension 1 drop 1 drop, Right Eye, ONCE, 1 dose, On Thu05/04/19 at 0945, 1 drop to the operative eye once, start on day of surgery, Day of Surgery (Day of Procedure), Routine sodium chloride 0.9 % (flush) flush 5 mL 5 mL, Intravenous, 2 TIMES DAILY, First dose on Thu at 0945, Until Discontinued, Day of Surgery (Day of Procedure), Routi ne sodium chloride 0.9 % (flush) flush 5-20 mL 5-20 mL, Intravenous, EVERY 1 MIN PRN, S tarting on Thu05/04/19 at 0920, Until Thu05/04/19 at 1303, flush, Flush pertains t o all indwelling lines. Flush per protocol found in the job aid using the link provided on this m edication record., Day of Surgery (Day of Procedure), Routine documented in this encounter Active and Recently Administered Medications Times are shown in EDT. Scheduled Medication Order 05/02/2019 05/03/2019 05/04/2019 cyclopentolate (CYCLODRYL) 1 % ophthalmic solution 1 drop (COMPL ETED) 0933 (Given - Provider: Cornelia Castillo RN)0938 (Given - Provider: Cornelia Castillo, ACNDY)0945 (Given - Provider: Cornelia Castillo, CANDY) 1 drop, Right Eye, EVERY 5 MIN, 3 doses, First dose on Thu05/04/19 at 0945, Last dose on Thu05/04/19 at 0955, 1 drop to the operative eye every 5 minutes times 3. Start day of surgery. Do NOT place dila ting drops in post-op kit!, Day of Surgery (Day of Procedure), R outine ketorolac tromethamine (ACULAR) 0.5 % ophthalmic solution 1 drop (COMPLETED) 0945 (Given - Provider: Cornelia Castillo RN) 1 drop, Right Eye, ONCE, 1 dose, 04/17 at 0945, 1 drop to the operative eye once, start on day of surgery, Day of Surgery (Day of Procedure), Routine moxifloxacin (VIGAMOX) 0.5 % ophthalmic solution 1 drop (COMPLET ED) 0939 (Given - Provider: Cornelia Castillo, RN)0945 (Given - Provider: Cornelia Castillo, RN)0958 (Given - Provider: Cornelia Castillo, RN) 1 drop, Right Eye, EVERY 5 MIN, 3 doses, First dose on Thu05/04/19 at 0945, Last dose on Thu05/04/19 at 0955, 1 drop to the operative eye every 5 minutes times 3. Start on the day of surgery. , Day of Surgery (Day of Procedure), Routine PHENYLephrine (MYDFRIN) 2.5 % ophthalmic solution 1 drop (COMPLE PARUL) 0933 (Given - Provider: Cornelia Castillo RN)0938 (Given - Provider: Cornelia Castillo, RN)0945 (Given - Provider: Cornelia Castillo, CANDY) 1 drop, Right Eye, EVERY 5 MIN, 3 doses, First dose on Thu05/04/19 at 0945, Last dose on Thu05/04/19 at 0955, 1 drop to the operative eye every 5 minutes times 3. Start on the day of surgery. Do NOT eleazar ce dilating drops in post-op kit!, Day of Surgery (Day of Proced ure), Routine prednisoLONE acetate (PRED FORTE) 1 % ophthalmic suspension 1 drop (COMPLETED) 0945 (Given - Provider: Cornelia Castillo, CANDY) 1 drop, Right Eye, ONCE, 1 dose, 04/17 at 0945, 1 drop to the operative eye once, start on day of surgery, Day of Surgery (Day of Procedure), Routine sodium chloride 0.9 % (flush) flush 5 mL 45 (Due) 5 mL, Intravenous, 2 TIMES DAILY, First dose on Thu05/04/19 at 0945, Until Discontinued, Day of Surgery (Day of Procedure), Routine Continuous Medication Order 05/02/2019 05/03/2019 05/04/2019 lactated ringers infusion 0957 ( New Bag - Provider: Cornelia Castillo, CANDY) 1,000 mL, at 100 mL/hr, Intravenous, CON TINUOUS, Starting Thu05/04/19 at 0945, Until Thu05/04/19 at 1303, Day of Surgery (Day of Procedure) PRN Medication Order 05/02/2019 05/03/2019 05/04/2019 acetaminophen (TYLENOL) tablet 650 mg 650 mg, Oral, ONCE PRN, 1 dose, Starting Thu05/04/19 at 1050, Until Thu05/04/19 at 1303, Pain, Maximum dose of acetaminophen is 4000 mg from all sources in 24 hours., Recovery (Recovery-Hospital Unit), Routine atropine injection 0.4 mg 0.4 mg, Intravenous, EVERY 5 MIN PRN, 2 doses, Starting Thu05/04/19 at 0921, Until Thu05/04/19 at 1303, Other, for heart rate less than 40 beats per minute., For 2 doses, Intra-Operative (Intra-Procedure), Routine fentaNYL 50 mcg/mL multi-dose injection 25-50 mcg, Intravenous, EVERY 5 MIN PRN, Starting Thu05/04/19 at 0921, Until Thu05/04/19 at 1303, Pain, Hold for respiratory rate less than 8 breaths per minute. (maximum dose 200 mcg), Intra-Operative (Intra-Procedure), Routine labetalol (NORMODYNE,TRANDATE) injection 2.5 mg 2.5 mg, Intravenous, EVERY 5 MIN PRN, 4 doses, Starting Thu05/04/19 at 0921, Until Thu05/04/19 at 1303, High Blood Pressure, systolic blood pressure greater than 180 mmHg, Hold for heart rate less than 55 beats per minute. Call MD if ineffect erik after 4 doses., Intra-Operative (Intra-Procedure), Routine lidocaine (XYLOCAINE) 10 mg/mL (1 %) injection 3 mg 3 mg (0.3 mL), Subcutaneous, ONCE PRN, 1 dose, Starting Thu05/04/19 at 0920, Until Thu05/04/19 at 1303, for discomfort with PIV insertion, Day of Surgery (Day of Procedure), Routine midazolam (PF) (VERSED) multi-dose injection 0.5-2 mg 1022 (Given - Provider: Cornelia Castillo RN) 0.5-2 mg, Intravenous, EVERY 5 MIN PRN, Starting Thu05/04/19 at 0921, Until Thu05/04/19 at 1303, Sleep, Anxiety, Hold for delirium/agitation. (Maximum dose 5 mg)., Intra-Operative (Intra-Procedure), Routine naloxone (NARCAN) injection 0.1 mg 0.1 mg, Intravenous, EVERY 2 MIN PRN, St arting Thu05/04/19 at 0921, Until Thu05/04/19 at 1303, Opioid Reversal, Opiate induced oversedation or respiratory depression. (maximum dose of 0.8 mg), Intra-Operative (Intra-Procedure), Routine sodium chloride 0.9 % (flush) flush 5-20 mL 5-20 mL, Intravenous, EVERY 1 MIN PRN, S tarting Thu05/04/19 at 0920, Until Thu05/04/19 at 1303, flush, Flush pertains to all indwelling lines. Flush per protocol found in the job aid using the link prov [employer] on this medication record., Day of Surgery (Day of Procedur e), Routine documented in this encounter Care Teams Accounting Analyst Relationship Specialty Start Date End Date Cristine Howard MD PCP - General Family Medicine 10/15/18 [address] [place] [address] documented as of this encounter
--- OUTSIDE RECORDS SUMMARY | 2022-03-11 11:40 | XMS_ITS | Encounter Summary ---
:1975 Author Organization [facility] [place] [address] Care Team Providers Name Role Phone Cristine Howard MD Primary Care Provider Encounter Details Date Type Department Care Team Description 05/27/2019 Telephone Ophthalmology [facility] Marguerite Walsh, OD [facility] [place] [address] [place] [id number] [phone] (Wo rk) Social History Tobacco Use Types [...] this encounter Miscellaneous Notes Telephone Encounter - Marguerite Walsh, OD - 05/27/2019 2:15 PM EDT Hi Aubrey, Can you please order 2boxes of trials for below Rx? Please call patient to hand picker trials when they arrive and print her a copy of final Rx. She will call if she needs a CL check. Thanks Final Contact Lens Rx Brand Base Curve Diameter Sphere Cylinder [place] Right No Lens Left Acuvue Oasys 1 Day Astigmatism 8.5 14.3 -1.25 -0.75 100 Expiration Date: 05/27/2020 Replacement: Daily Wearing Schedule: Daily wear Edited by: Marguerite Walsh OD; Rose Davis documented in this encounter Plan of Treatment Not on filedocumented as of this encounter Visit Diagnoses Not on filedocumented in this encounter Care Teams Area Secretary Relationship Specialty Start Date End Date Cristine Howard MD PCP - General Family Medicine 10/15/[address] [place] [address] documented as of this encounter
--- OUTSIDE RECORDS SUMMARY | 2022-03-11 11:40 | XMS_ITS | Encounter Summary ---
:1975 Author Organization [facility] Address [address] [facility] [address] [place] [id number] Care Team Providers Name Role Phone Cristine Howard MD Primary Care Provider Reason for Visit Reason Comments Contact Lens Fitting Encounter Details Date Type Department Care Team Description 05/27/2019 Office Visit Ophthalmology at [facility] Marguerite Walsh, Astigmatism of both eyes wit h presbyopia; [facility] Pseudophakia; [address] [facility] Age-related [place] [address] [address] [phone] [place] [address] Social History Tobacco Use Types Packs/Day Years [...] on file documented as of this encounter Progress Notes Marguerite Walsh, OD - 05/27/2019 1:15 PM EDT Kim Fallon is a 43 y.o. female who had concerns including Contact Lens Fitting. Sent by Dr. Avilez for CL fitting OS since cataract surgery is not yet recommended OS. Discussed glasses vs CL OS only. 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 Will need readers on top for computer-near work, advised these could be different strengths for the different working distances. She wore CLs for several months (d/c due to lens discomfort) years ago and declines CL I&R refresher training. Ordering CL trials OS. Encounter Diagnoses Name Primary? Astigmatism of both eyes with presbyopia ??? Pseudophakia ??? Age-related nuclear cataract of left eye Assessment: 1) Pseudophakia OD (05/04/[address] Avilez) 2) Cataracts OS 3) Refractive error / presbyopia OU Trial CLs OS ordered as below: Brand Base Curve Diameter Sphere Cylinder [place] Cent[place] Movement Right No Lens Left Acuvue Oasys 1 Day Astigmatism 8.5 14.3 -1.25 -0.75 100 Ordered daily replacement CLs OS for best comfort Plan: 1) Monitor. 2) Pt edu re: cataracts including associated symptoms of blurry vision and glare. 3) Trial CLs ordered. Final Rx to be dispensed with trials. Will call if she needs a CL check. If CLs are too uncomfortable will need to go to glasses. Patient was educated about the importance of following recommended wear times including not sleeping, swimming, or showering in lenses. Patient was also educated about the importance of proper CL hygiene. Follow up: as scheduled with Dr. Avilez 06/14/19. documented in this encounter Plan of Treatment Not on filedocumented as of this encounter Visit Diagnoses Diagnosis Astigmatism of both eyes with presbyopia Pseudophakia Lens replaced by other means Age-related nuclear cataract of left eye Senile nuclear sclerosis documented in this encounter Care Teams Optometrist/Practice Owner Relationship Specialty Start Date End Date Cristine Howard MD PCP - General Family Medicine 10/15/[address] [place] [address] documented as of this encounter
--- OUTSIDE RECORDS SUMMARY | 2022-03-11 11:40 | XMS_ITS | Encounter Summary ---
:1975 Author Organization [facility] [place] [address] Care Team Providers Name Role Phone Cristine Howard MD Primary Care Provider Reason for Visit Reason Onset Date Comments Post Op Post Op 05/05/2019 Encounter Details Date Type Department Care Team Description 05/05/2019 Office Visit Ophthalmology at [facility] [place], Status post cataract extract ion and insertion of intraocular lens, right; [facility] MD [place] [address] [place] [address] OPHTHALMOLOGY [place] [address] Social History Tobacco Use Types Packs/Day Years [...] as of this encounter Patient Instructions Patient InstructionsNilda Carias - 05/05/2019 8:45 AM EDT Images from the original note were not included. Drop Name: Cap Color: Dose: 1 Drop Eye: Ketorolac Espinosa 4 x daily right eye Prednisolone Acetate 1% [place] or White 4 x daily right eye Vigamox (Moxifloxacin) Jo 4 x daily right eye Bring all drops with you to every eye appointment! Use medications prescribed until told otherwise by [...] be used in both eyes if desired Avoid eye injury and infection! Following eye surgery your eye is more prone to injuries and infection. Therefore, special attentionmust be given to avoid inadvertent complications. ?? Do not rub your eye. ?? Wear eye protection at all times. (Glasses) ?? Wear eye shield while sleeping for the first three nights. ?? Do not engage in activities that could result in a blow to your eye. ?? Do not engage in heavy physical activities that could cause you to strain. ?? Wash your hands frequently and especially before instilling eye drops. ?? Do not swim or bathe in contaminated water, for example pond or garcia or hot tub, for at least 1 week. ?? Showering and washing your hair is fine, but be mindful to avoid getting soap and water in the operative eye for the next few days. (Keep eye closed) Call the eye clinic at [phone] if you experience any unusual redness, pain, flashes or floaters, or vision changes. You can call this number day or night. After office hours, the sole rounding machine operator will connect you with the doctor division toll wire chief. documented in this encounter Progress Notes Humphrey Avilez MD - 05/05/2019 8:45 AM EDT Assessment: Encounter Diagnoses Name Primary? Status post cataract extraction and insertion of intraocular lens, right ??? Pseudophakia Kim Fallon is POD#1 cataract surgery in her right eye Doing well with a normal post operative appearance. Plan: - Prednisolone acetate 1% qid in operative eye - Moxifloxicin qid in operative eye - Ketorolac qid in operative eye - Post op precaution sheet reviewed and given to patient Follow up: - 1 week or as needed. Upon return IOP OU MR operative eye documented in this encounter Plan of Treatment Not on filedocumented as of this encounter Visit Diagnoses Diagnosis Status post cataract extraction and inse rtion of intraocular lens, right Pseudophakia Lens replaced by other means documented in this encounter Care Teams Defensive Fire Control Systems Operator Relationship Specialty Start Date End Date Cristine Howard MD PCP - General Family Medicine 10/15/[address] [place] [address] documented as of this encounter
--- OUTSIDE RECORDS SUMMARY | 2022-03-11 11:40 | XMS_ITS | Encounter Summary ---
:1975 Author Organization [facility] [place] [address] Care Team Providers Name Role Phone Cristine Howard MD Primary Care Provider Encounter Details Date Type Department Care Team Description 06/03/2019 Telephone Ophthalmology at [facility] Marguerite Ramirez, [facility] [place] [address] [place] [id number] [phone] (Wo rk) Social History Tobacco Use Types [...] on file documented as of this encounter Plan of Treatment Not on filedocumented as of this encounter Visit Diagnoses Not on filedocumented in this encounter Care Teams Knife Sharpener Relationship Specialty Start Date End Date Cristine Howard MD PCP - General Family Medicine 10/15/[address] [place] [address] documented as of this encounter
--- OUTSIDE RECORDS SUMMARY | 2022-03-11 11:40 | XMS_ITS | Clinical Summary ---
:1975 Author Organization [facility] [place] [address] Care Team Providers Name Role Phone Cristine Howard MD Primary Care Provider Allergies No known active allergies Medications Medication Sig Dispensed Refills Start Date End Date Status levonorgestrel 1 each by 0 Activ e (MIRENA) 20 mcg/24 hr Intrauterine route (5 years) IUD Continuous (Device). Expected removal date Active Problems Problem Noted Date Pseudophakia 05/27/2019 Age-related nuclear cataract of left eye 10/15/2018 Astigmatism of both eyes with presbyopia 10/15/2018 Immunizations Name Administration Dates Next Due Influenza Vaccine, Whole 07/09/2005 Family History Medical History Relation Comments Cancer Father Cataracts Father Hypertension Father Amblyopia Neg Hx Diabetes Neg Hx Glaucoma Neg Hx Heart Disease Neg Hx Macular Degeneration Neg Hx Retinal Detachment Neg Hx Strabismus Neg Hx Thyroid Disease Neg Hx Relation Status Comments Father Social History Tobacco Use Types Packs/Day Years [...] Assigned at Date Recorded Not on file Last Filed Vital Signs Vital Sign Reading [...] Mass Index 22.05 05/04/2019 9:28 AM EDT Plan of Treatment Health Maintenance Due Date Last Done Comments Covid-19 Vaccine (#1) 1978 HIV screen 12/09/1991 Hepatitis C Screening 12/09/1991 Tdap adult 1992 Tetanus vaccine 1992 HPV test 12/09/2003 PAP Smear 12/09/2003 Breast Cancer Share Decision Needed 2013 Colonoscopy 2018 Influenza (Flu) vaccine (1 of - Influenza standard 04/17/2022 07/09/2005 series) Medical Devices Implanted Type Area Desk Clerks Supervisor Device Shelf Model / Identifier Expiration Serial / Date Lot Iol,[id number],21.0 ([id number]) (Autoreq) - [id number] IMPLANTS Right: NOVARTIS - 09/16/2023 [id number] / Implanted: Qty: 1 on 05/04/2019 by Humphrey Avilez MD at [facility] Eye NOVARTIS [id number] / Insurance Payer Benefit Plan Subscriber ID Effective Dates Phone Address Type / Group [facility] [id number] 2018-Prese [phone] [address] [facility] [address] [facility] [id number] Care Teams Intermediate Frame Tender Relationship Specialty Start Date End Date Cristine Howard MD PCP - General Family Medicine 10/15/[address] [place], [place] [address]
--- OUTSIDE RECORDS SUMMARY | 2022-03-11 11:40 | XMS_ITS | Encounter Summary ---
:1975 [place] [address] Care Team Providers Name Role Phone Cristine Howard MD Primary Care Provider Reason for Visit Auth/Cert Specialty Diagnoses / Procedures Referred By Contact Refer red To Contact Diagnoses Cataract Procedures PRO REMV CATARACT EXTRACAP,INSERT LENS,COMP CATARACT EXTRACTION, EXTRACAPSULAR, WITH LENS INSERTION, COMPLEX (WRVU [id number]) Referral ID Status Reason Start Date Expiration Date Visits Requ ested Visits Authorized [id number] 1 1 Encounter Details Date Type Department Care Team Description 05/04/2019 Hospital Encounter Outpatient Surgery [facility] Karo Arellano i, MD [facility] [address] [place] [address] [place] [address] [phone] (Wo rk) Social History Tobacco Use Types [...] CATARACT surgery Dr. Avilez Section of ophthalmology [facility] [phone] - Wear either the eye shield or glasses of any kind 24 hours per day for the first week following surgery. - Your appointment tomorrow with Dr. Avilez will be at the Eye Clinic in the main building at [facility]. Bring your Eye Kit to all postoperative visits. - Call you Primary Care Doctor or the Emergency Room for any non eye related medical issues. - It is normal to have a scratchy sensation or mild pain in your eye, but if you have any severe eyepain, vomiting or bleeding call [phone] and ask to speak to the ophthalmology doctor manager contact. - Your eye will be red tomorrow [...] 8 am - 5pm call ophthalmology : [phone] After 5pm or on a weekend or holiday: call the [facility] process line operator and ask for the ophthalmology physician manager contact. documented in this encounter Medications at Time [...] Avilez MD - 05/04/2019 10:[address] [facility] Operative Note Patient Name: Kim Fallon : [...] Cornelia Castillo RN)0938 (Given - Provider: Cornelia Castillo RN)0945 (Given - Provider: Cornelia Castillo RN) 1 drop, Right Eye, EVERY 5 [...] (COMPLET ED) 0939 (Given - Provider: Cornelia E Friend, RN)0945 (Given - Provider: Cornelia Castillo RN)0958 (Given - Provider: Cornelia Castillo, RN) [...] Cornelia Castillo RN)0938 (Given - Provider: Cornelia Castillo RN)0945 (Given - Provider: Cornelia Castillo, RN) 1 [...] (COMPLETED) 0945 (Given - Provider: Cornelia Castillo, RN) 1 drop, Right Eye, ONCE, 1 dose, 04/17 at 0945, 1 drop to the operative eye once, start on day of surgery, Day of Surgery (Day of Procedure), Routine sodium chloride 0.9 % (flush) flush 5 mL 0945 (Due) 5 mL, Intravenous, 2 TIMES DAILY, First dose on Thu05/04/19 at 0945, Until Discontinued, Day of Surgery (Day of Procedure), Routine Continuous Medication Order 05/02/2019 05/03/2019 05/04/2019 lactated ringers infusion 0957 ( New Bag - Provider: Cornelia Castillo, RN) 1,000 mL, at 100 mL/hr, Intravenous, CON [...] 0.5-2 mg 1022 (Given - Provider: Cornelia Castillo, RN) 0.5-2 mg, Intravenous, EVERY 5 MIN [...] the job aid using the link prov Servhawkd on this medication record., Day of Surgery (Day of Procedur e), Routine documented in this encounter Care Teams Biology Tutor Relationship Specialty Start Date End Date Cristine Howard MD PCP - General Family Medicine 10/15/[address] [place] [address] [address] [place] [address] documented as of this encounter
--- OUTSIDE RECORDS SUMMARY | 2022-03-11 11:41 | XMS_ITS | Encounter Summary ---
:1975 Author Organization [facility] Address [address] [place] [address] Care Team Providers Name Role Phone Unavailable Primary Care Provider Unavailable Encounter Details Date Type Department Care Team Description 07/07/2003 Results Only [facility] - Mari Degroot [facility] [address] [place] [address] Social History Tobacco Use Types Packs/Day Years Used Date Never Assessed Sex Assigned at Date Recorded Not on file documented as of this encounter Plan of Treatment Not on filedocumented as of this encounter Procedures Procedure Name Priority Date/Time Associated Diagnosis Comme nts CYTOPATHOLOGY Routine 07/07/2003 0:00 EST Results for this procedure are i n the results section . documented in this encounter Results CYTOPATHOLOGY (07/07/2003 0:00 EST) Pathology Report: CYTOPATHOLOGY REPORT [facility] Reports generated via electronic interface contain estee ginal data; however they are lacking the format of the original re port. Caution should be taken when reading/interpreting unfo rmatted reports. Name: ? BRETT BERRIOS ? Accession #: ? [id number] : ? 1975 (Age: 27) ??F ?Collect Date: ? 06/18 Location: ? [facility] ? Receive Date : ? 07/11/2003 Provider: ?MARI CAMPBELL [facility] Copy to: ? Specimen/Source: ?ThinPrep Pap Test, Cervix/ Endocervix Last Menstrual Period: ? 04/28/03 ? SPECIMEN ADEQUACY ? Satisfactory for Evaluation - transformation zone component present GENERAL CATEGORIZATION ? Negative for Intraepithelial Lesion or Malignan cy ? Document reviewed and electronically signed by: ? DANGELO Dick(ASCP) ? Report Date: ??07/17/2003 14:08 End of Report Specimen Performing Organization Address City/State/ZIP Code Phon e Number [facility] [address] [place] [address] SERVICES [facility] [address] [place] [address] documented in this encounter Visit Diagnoses Not on filedocumented in this encounter
--- OUTSIDE RECORDS SUMMARY | 2022-03-11 11:41 | XMS_ITS | Encounter Summary ---
:1975 Author Organization [facility] Address [address] [place] [address] Care Team Providers Name Role Phone Unknown, Provider Primary Care Provider Encounter Details Date Type Department Care Team Description 12/19/2020 Lab Requisition [facility] Mary Gill Encounter for other Pathology & 1315 [facility] general examination Laboratory Medicine [facility] [phone] [address] [facility] [phone] [place] [address] (Work) [phone] Social History Tobacco Use Types Packs/Day Years Used Date Never Assessed Sex Assigned at Date Recorded Not on file documented as of this encounter Plan of Treatment Not on filedocumented as of this encounter Procedures Procedure Name Priority Date/Time Associated Comments Diagnosis PAP TEST Today 12/18/2020 3:55 Encounter for other Resul ts for this EDT general examination procedur e are in the results section. HUMAN PAPILLOMAVIRUS Today 12/18/2020 3:55 Encounter for oth er Results for this (HPV) DETECTION-HIGH EDT general examination procedure are in RISK TYPES the results section. documented in this encounter Results HUMAN PAPILLOMAVIRUS (HPV) DETECTION-HIGH RISK TYPES (12/18/2020 3:55 EDT) Human Papillomavirus NegativeComment: No Negative [facility] (HPV) Detection-High E6 or E7 mRNA is CENTER LABORATOR Y Types detected from HPV SERVICES types 16,18,31,33,35,39,45 ,51,52,56,58,59,66, and 68 by personalized living manager mediated amplification. Specimen Pap Test - Cervix and/or Endocervix Performing Organization Address City/State/ZIP Code Phon e Number [facility] [address] [place] [address] SERVICES PAP TEST (12/18/2020 3:55 EDT) Specimens A. Cervix and/or [facility]ICAL Endocervix , ThinPrep CENTER Imaging System with LABORATORY Manual Evaluation SERVICES Specimen Adequacy Satisfactory for [facility] Evaluation - CENTER transformation zone LABORATORY component present SERVICES General Negative for [facility] intraepithelial [place] lesion or malignancy LABORATORY SERVICES Attestation . [facility] signed by Pratik mcpherson LABORATORY RAYMOND Valdez([facility] [place]) SERVICES on 12/26/2020 at 0745 Clinical History See below [facility] SERVICES HPV The result for the Human Pap illomavirus (HPV) Detection-High Risk Types is Negative. No E6 or E7 mRNA is detected from HPV types 16,18,31,33,35,39,45,51,52,56,58,59,66, and 68 by personalized living manager mediated [facility] amplification.Testing was pe rformed on specimen [id number] and was resulted on 12/26/2020 0742 EDT by TATO, LAB INSTRUMENT RESULTS IN [facility] SERVICES Performing Lab [facility] SERVICES Scanned Images [facility] SERVICES Specimen Pap Test - Cervix and/or Endocervix Performing Organization Address City/State/ZIP Code Phon e Number [facility] [address] [place] [address] SERVICES documented in this encounter Visit Diagnoses Diagnosis Encounter for other general examination documented in this encounter Care Teams Corporate Travel Manager Relationship Specialty Start Date End Date Unknown, Provider, PCP - General 06/23/15 documented as of this encounter
--- OUTSIDE RECORDS SUMMARY | 2022-03-11 11:41 | XMS_ITS | Clinical Summary ---
:[address] [facility] Address [address] [place] [address] Care Team Providers Name Role Phone Unknown, Provider Primary Care Provider Social History Tobacco Use Types Packs/Day Years Used Date Never Assessed Sex Assigned at Date Recorded Not on file Plan of Treatment Not on file Care Teams Branding Specialist Relationship Specialty Start Date End Date Unknown, Provider, PCP - General 06/23/15
--- OUTSIDE RECORDS SUMMARY | 2022-03-11 11:41 | XMS_ITS | Encounter Summary ---
:1975 [place] [address] Care Team Providers Name Role Phone Cristine Howard MD Primary Care Provider Reason for Visit Reason Comments Cataract Encounter Details Date Type Department Care Team Description 02/03/2019 Office Visit Ophthalmology at [facility] Kim Avilez, Age-related nuclear [facility] MD Humphrey cataract, bilateral Drive [facility] (Primary Dx) [place] [address] CENTER [phone] OPHTHALMOLOGY DEPT [place], [place] [address] Social History Tobacco Use Types Packs/Day Years Used Date Never Smoker Smokeless Tobacco: Never Used Alcohol Use Standard Drinks/Week Comments Yes 0 (1 standard drink = 0.6 oz pure alcoho l) Sex Assigned at Date Recorded Not on file documented as of this encounter Progress Notes Humphrey Avilez MD - 02/03/2019 12:00 PM EDT Kim Fallon has visually significant cataract interfering with visual tasks. We discussed the risks, benefits and alternatives to cataract surgery. Kim expressed understanding and is keen to pursue cataract surgery in her Right eye with a monofocal IOL Unsure about TORIC - will call back she denies any history of amblyopia, patching or strabismus surgery in the past. No history of trauma or Flomax use. No PXE or phacodenesis noted on exam. Target Refraction: [place] to -0.50 Discussed that this is an estimate and that there would likely be a post operative need for glasses to achieve best vision. Type of Cataract: 3+ milky nuclear Special surgical issues: tryphan blue Anesthesia: IVCS Dilation: 7mm Allergies: No Known Allergies Surgical orders entered Surgical consent signed POM and surgical coordination initiated Call prn any problems or questions. documented in this encounter Plan of Treatment Not on filedocumented as of this encounter Procedures Procedure Name Priority Date/Time Associated Comments Diagnosis [id number] CALC Routine 02/08/2019 1:25 PM Age-related Results for this BY LASER INTERFEROMETRY EDT nuclear cataract, procedure are in - OU - BOTH EYES bilateral the results section. CATARACT EXTRACTION, Routine 02/03/2019 1:13 PM EXTRACAPSULAR, W/ LENS EDT INSERTION, COMPLEX documented in this encounter Results [id number] CALC BY LASER [id number] EYES (02/08/2019 1:25 PM EDT) Anatomical Region Laterality Modality Other Specimen (Source) Anatomical Location Collection Method / Collectio n Time Received Time / Laterality Volume Narrative 02/08/2019 1:25 PM EDT Physician PreOp Lens Selection Right Eye Style: SN6AT2. Power: 21.00. Left Eye Style: SN6AT2. Power: 22.00. General Details Right Eye. Notes Patient Hx Past Medical Hx ??Pt. ??has a past medi vivienne history of Age-related nuclear cataract of both eyes (10/15/2018). Past Ophth Surg Hx ??No relevant surgic al history has been documented for this patient. Eye Meds ??levonorgestrel IOL Biometry - Initial (source: LENSTAR) OD OS Date Performed 02/03/2019 12:55 PM 019 12:55 PM ?? Target Refraction No Value exists for th e PROC TECH: DHOPH#016 No Value exists for the PROC TECH: DHOPH#017 ?? Axial Length 23.4 (mm) 23.1 (mm) ?? Anterior Chamber Depth 3.58 (mm) 4.35 (m m) ?? Horizontal White to White 12.02 (mm) 12. 14 (mm) ?? Formula Used ? K's 43.77@019 / 44.72@109 44.08@001 / 45 .06@091 ? Add'l Comments/Discrepancies/Concerns: IOLMASTER OU to confirm axial length dis crepancies. Lengths match. Good quality scans done OU by MAL Humphrey Avilez MD OPHTHALMOLOGY SERVICES ORD ERABLES documented in this encounter Visit Diagnoses Diagnosis Age-related nuclear cataract, bilateral - Primary Senile nuclear sclerosis documented in this encounter Care Teams Digital Forensic Analyst Relationship Specialty Start Date End Date Cristine Howard MD PCP - General Family Medicine 10/15/[address] [place] [address] documented as of this encounter
--- OUTSIDE RECORDS SUMMARY | 2022-03-11 11:41 | XMS_ITS | Encounter Summary ---
:1975 Author Organization [facility] Address [address] [place] [address] Care Team Providers Name Role Phone Unknown, Provider Primary Care Provider Encounter Details Date Type Department Care Team Description 12/03/2020 Lab Requisition [facility] Outr Resulting Lab, Pathology & Laboratory Provider [facility] [address] [place] [id number] Social History Tobacco Use Types Packs/Day Years Used Date Never Assessed Sex Assigned at Date Recorded Not on file documented as of this encounter Plan of Treatment Not on filedocumented as of this encounter Procedures Procedure Name Priority Date/Time Associated Diagnosis Comme nts PROLACTIN Routine 12/03/2020 8:54 EDT Results for this procedure are i n the results section . documented in this encounter Results PROLACTIN (12/03/2020 8:54 EDT) Prolactin 6.0 See Table [facility] Comment: ng/mL LABORATORY SERVICES NOTE: Female Reference Ranges: PHYSIOLOGICAL STATUS ?EXPECTED R ESSENCE ? ---- Postmenopausal ?1.8 - 2 0.3 ng/mL ?9.7 - 208.5 ng/mL Non- ?2.8 - 29.2 ng/mL Reference Ranges for Prolact in in female patients <18 years old have not been established. Specimen Blood - Venous blood (substance) Performing Organization Address City/State/ZIP Code Phon e Number [facility] [address] [place] [address] SERVICES documented in this encounter Visit Diagnoses Not on filedocumented in this encounter Care Teams Tile Sprayer Relationship Specialty Start Date End Date Unknown, Provider, PCP - General 06/23/15 documented as of this encounter
--- OUTSIDE RECORDS SUMMARY | 2022-03-11 11:41 | XMS_ITS | Encounter Summary ---
:1975 Author Organization [facility] [place] [address] Care Team Providers Name Role Phone Cristine Howard MD Primary Care Provider Reason for Visit Reason Onset Date Comments Appointment 11/15/2018 Encounter Details Date Type Department Care Team Description 11/15/2018 Telephone Ophthalmology at [facility] Kim Avilez, Appointment [facility] [place] [address] [facility] [phone] OPHTHALMOLOGY DE PT [place], [place] [address] (Wo rk) Social History Tobacco Use Types Packs/Day Years Used Date Never Smoker Smokeless Tobacco: Never Used Alcohol Use Standard Drinks/Week Comments Yes 0 (1 standard drink = 0.6 oz pure alcoho l) Sex Assigned at Date Recorded Not on file documented as of this encounter Miscellaneous Notes Telephone Encounter - Jaja Stoddard - 02/02/2019 3:41 PM EDT Patient called back said that she is able to do that time Telephone Encounter - Richa Wisdom - 11/15/2018 4:02 PM EDT Left message for pt to call back to reschedule appointment and POM's cataract eval documented in this encounter Plan of Treatment Not on filedocumented as of this encounter Visit Diagnoses Not on filedocumented in this encounter Care Teams Transport Coordinator Relationship Specialty Start Date End Date Cristine Howard MD PCP - General Family Medicine 10/15/18 [address] [facility] [address] [place] [address] documented as of this encounter
--- OUTSIDE RECORDS SUMMARY | 2022-03-11 11:41 | XMS_ITS | Encounter Summary ---
:1975 Author Organization [facility] [place] [address] Care Team Providers Name Role Phone Garrett Rodriguez MD, Deshawn Primary Care Provider Encounter Details Date Type Department Care Team Description 10/30/2010 Follow-Up [facility] [address] CLINIC, DR MIG[facility] Emigdio Salcedo MD [facility] [place] [address] [place] [address] Social History Tobacco Use Types Packs/Day Years Used Date Never Assessed Sex Assigned at Date Recorded Not on file documented as of this encounter Plan of Treatment Not on filedocumented as of this encounter Visit Diagnoses Not on filedocumented in this encounter Care Teams Appeals Reviewer Veteran Relationship Specialty Start Date End Date Deshawn Tucker MD PCP - General 07/09/10 10/14/18 [address] [place] [address] documented as of this encounter
--- OUTSIDE RECORDS SUMMARY | 2022-03-11 11:41 | XMS_ITS | Encounter Summary ---
:1975 Author Organization [facility] [place] [address] Care Team Providers Name Role Phone Cristine Howard MD Primary Care Provider Encounter Details Date Type Department Care Team Description 02/03/2019 Procedure [place] [address] Social History Tobacco Use Types Packs/Day Years [...] on filedocumented in this encounter Care Teams Clay Dry Press Helper Relationship Specialty Start Date End Date Cristine Howard MD PCP - General Family Medicine 10/15/[address] [place] [address] documented as of this encounter
--- OUTSIDE RECORDS SUMMARY | 2022-03-11 11:41 | XMS_ITS | Encounter Summary ---
:1975 Author Organization [facility] [place] [address] Care Team Providers Name Role Phone Garrett Rodriguez MD, Deshawn Primary Care Provider Encounter Details Date Type Department Care Team Description 10/30/2010 [place] [address] Social History Tobacco Use Types Packs/Day Years Used Date Never Assessed Sex Assigned at Date Recorded Not on file documented as of this encounter Medications at Time of Discharge Medication Sig Dispensed Refills Start Date End Date CIS Free Text Med - 0 10/30/201010/15 Multiple Vitamin LORazepam (ATIVAN) 1 mg 0.5 MG = 1/2 0 10/30/2010 10/15/2018 tablet Tablet(s), PO, Once daily, MR x 1 NORGESTIMATE-ETHINYL 0 10/30/20100 08/2018 ESTRADIOL (SPRINTEC, 28, ORAL) OMEGA-3 FATTY ACIDS/FISH 0 10/30/2010 10/15/2018 OIL (FISH OIL OMEGA 3-6-9 ORAL) amitriptyline (ELAVIL) 10 10 MG = 1 0 10/30/2010 10/15/2018 mg tablet Tablet(s), PO, QHS documented as of this encounter Plan of Treatment Not on filedocumented as of this encounter Visit Diagnoses Not on filedocumented in this encounter Care Teams Flatwork Folder Relationship Specialty Start Date End Date Deshawn Tucker MD PCP - General 07/09/10 10/14/18 [address] [place], [place] [address] documented as of this encounter
--- OUTSIDE RECORDS SUMMARY | 2022-03-11 11:41 | XMS_ITS | Encounter Summary ---
:1975 Author Organization [facility] Address [address] [place] [address] Care Team Providers Name Role Phone Unavailable Primary Care Provider Unavailable Encounter Details Date Type Department Care Team Description 04/06/2003 Results Only [facility] - Aidan Rodriguez MD conversion [address] [place] [address] Social History Tobacco Use Types Packs/Day Years Used Date Never Assessed Sex Assigned at Date Recorded Not on file documented as of this encounter Plan of Treatment Not on filedocumented as of this encounter Procedures Procedure Name Priority Date/Time Associated Diagnosis Comme nts CYTOPATHOLOGY Routine 04/06/2003 0:00 EDT Results for this procedure are i n the results section . documented in this encounter Results CYTOPATHOLOGY (04/06/2003 0:00 EDT) Pathology Report: CYTOPATHOLOGY REPORT [facility] Reports generated via electronic interface contain estee ginal data; however they are lacking the format of the original re port. Caution should be taken when reading/interpreting unfo rmatted reports. Name: ? BRETT BERRIOS ? Accession #: ? [id number] : ? 1975 (Age: 27) ??F ?Collect Date: ? 03/18 Location: ? [facility] ? Receive Date : ? 04/07/2003 Provider: ?AIDAN BAY MD Copy to: ? Specimen/Source: ?ThinPrep Pap Test, Cervix/ Endocervix Last Menstrual Period: ? 03/19/03 ? SPECIMEN ADEQUACY ? Satisfactory for Evaluation - transformation zone component present GENERAL CATEGORIZATION ? Negative for Intraepithelial Lesion or Malignan cy ? Document reviewed and electronically signed by: ? DANGELO Haider(ASCP) ? Report Date: ??04/12/2003 11:27 End of Report Specimen Performing Organization Address City/State/ZIP Code Phon e Number [facility] [address] [place] [address] SERVICES [facility] [address] [place] [address] documented in this encounter Visit Diagnoses Not on filedocumented in this encounter
--- OUTSIDE RECORDS SUMMARY | 2022-03-11 11:41 | XMS_ITS | Encounter Summary ---
:1975 Author Organization [facility] Address [address] [place] [address] Care Team Providers Name Role Phone Unavailable Primary Care Provider Unavailable Encounter Details Date Type Department Care Team Description 12/29/2007 Results Only [facility] - Anupama Martinez CNM [place] [id number] [facility] [address] [place] [address] [place], [place] [address] [phone] Social History Tobacco Use Types Packs/Day Years Used Date Never Assessed Sex Assigned at Date Recorded Not on file documented as of this encounter Plan of Treatment Not on filedocumented as of this encounter Procedures Procedure Name Priority Date/Time Associated Comments Diagnosis HPV DETECTION, HIGH Routine 12/29/2007 9:40 Resul ts for this RISK TYPES EDT procedure are i n the results section. CYTOPATHOLOGY Routine 12/29/2007 0:00 Results for this EDT procedure are i n the results section. documented in this encounter Results HUMAN PAPILLOMA VIRUS DNA TEST (12/29/2007 9:40 EDT) Specimen Description Cervix, ThinPrep [facility] vial Result Negative for HPV [facility] types 16, 18, 31, 33, 35, 39, 45, 51, 52, 56, 58, 59, and 68. Report Status Final [facility] [id number] Specimen Performing Organization Address City/State/ZIP Code Phon e Number [facility] [address] [place] [address] SERVICES [facility] [address] [place] [address] CYTOPATHOLOGY (12/29/2007 0:00 EDT) Pathology Report: CYTOPATHOLOGY REPORT [facility] Reports generated via electronic interface contain estee ginal data; however they are lacking the format of the original re port. Caution should be taken when reading/interpreting unfo rmatted reports. Name: ? BRETT BERRIOS ? Accession #: ? [id number] : ? 1975 (Age: 32) ??F ?Collect Date: ? 12/15 Location: ? [facility] ? Receive Date : ? 12/30/2007 Provider: ?YANNAbdi IBANEZ CNM Copy to: ? Specimen/Source: ? ThinPrep Pap Test, Cervix/Endocervix, processed on [employer] ThinPrep Imaging System, with manual evaluation Last Menstrual Period: ? 10/26/07 Menstrual/ Status: ? Other: ? HPVDX - HPV testing requested regardless of diag nosis on current ThinPrep Pap test. ? SPECIMEN ADEQUACY ? Satisfactory for Evaluation - transformation zone component present GENERAL CATEGORIZATION ? Negative for Intraepithelial Lesion or Malignan cy INTERPRETATION ? Reactive cellular donna nges associated with inflammation present (includes repair). ? Document reviewed and electronically signed by: ? SHREYA CRUZ MD ? Report Date: ??01/04/2008 12:02 End of Report Specimen Performing Organization Address City/State/ZIP Code Phon e Number [facility] [address] [place] [address] SERVICES [facility] [address] [place] [address] documented in this encounter Visit Diagnoses Not on filedocumented in this encounter
--- OUTSIDE RECORDS SUMMARY | 2022-03-11 11:41 | XMS_ITS | Encounter Summary ---
:1975 Author Organization [place] [address] Care Team Providers Name Role Phone Garrett Rodriguez MD, Deshawn Primary Care Provider Encounter Details Date Type Department Care Team Description 10/30/2010 Orders Only Neurology at [facility] Emigdio Umanzor MD [facility] [place] [address] NEUROLOGY DEPT. [phone] [place], [place] [address] (Wo rk) Social History Tobacco Use Types Packs/Day Years Used Date Never Assessed Sex Assigned at Date Recorded Not on file documented as of this encounter Plan of Treatment Not on filedocumented as of this encounter Procedures Procedure Name Priority Date/Time Associated Diagnosis Comme nts MRI BRAIN WWO Routine 10/30/2010 2:08 PM Results for this CONTRAST (GENERIC) EDT procedure are in the results section. documented in this encounter Results MRI BRAIN WITH/WO CONTRAST (10/30/2010 2:08 PM EDT) Anatomical Region Laterality Modality Head Magnetic Resonance Specimen (Source) Anatomical Collection Method Collection Time Re ceived Time Location / / Volume Laterality 10/30/2010 2:08 PM EDT Impressions 10/31/2010 4:18 PM EDT IMPRESSION: Stable examination. ??Nonspecific small focal areas of subcortical T2 hyperintensity, which are stable compare d with previous study. ??No posterior fossa lesions, and no enhancement. Narrative 10/31/2010 4:18 PM EDT MR OF THE BRAIN, WITH AND WITHOUT GADOLI NIUM: ?? INDICATION: ??Bilateral shoulder and ext remity numbness, question demyelinating disease. ??Evaluate. ?? TECHNIQUE: ??Routine pre- and postcontra st MR imaging of the brain was performed. ??12 cc of Magnevist were giv en for the study. ?? COMPARISON: ??Direct comparison is made to a prior study done 03/12/10. FINDINGS: ??There is little change from the previous study. ??The previous study had thinner FLAIR images, which made the white matter lesions a bit more conspicuous. ??On today's study, approxi mately three lesions in the supratentorial white matter are well see n. ??The other ones previously demonstrated are not well seen on today' s study. ??There is no abnormal enhancement. ??No new lesions are seen. ??There is no restricted diffusion. ?? Procedure Note Jimmie Jones MD - 10/31/2010Forma tting of this note might be different from the original. MR OF THE BRAIN, WITH AND WITHOUT GADOLI NIUM: INDICATION: Bilateral shoulder and extre mity numbness, question demyelinating disease. Evaluate. TECHNIQUE: Routine pre- and postcontrast MR imaging of the brain was performed. 12 cc of Magnevist were given for the study. COMPARISON: Direct comparison is made to a prior study done 03/12/10. FINDINGS: There is little change from th e previous study. The previous study had thinner FLAIR images, which made the white matter lesions a bit more conspicuous. On today's study, approxima tely three lesions in the supratentorial white matter are well see n. The other ones previously demonstrated are not well seen on today' s study. There is no abnormal enhancement. No new lesions are seen. Th ere is no restricted diffusion. IMPRESSION IMPRESSION: Stable examination. Nonspecific small fo vivienne areas of subcortical T2 hyperintensity, which are stable compare d with previous study. No posterior fossa lesions, and no enhancement. Emigdio Umanzor MD IMG MRI ORDERABLES documented in this encounter Visit Diagnoses Not on filedocumented in this encounter Care Teams Movie Star Relationship Specialty Start Date End Date Deshawn Tucker MD PCP - General 07/09/10 10/14/18 [address] [place] [address] documented as of this encounter
--- OUTSIDE RECORDS SUMMARY | 2022-03-11 11:41 | XMS_ITS | Encounter Summary ---
:1975 Author Organization [facility] Address [address] [place] [address] Care Team Providers Name Role Phone Unavailable Primary Care Provider Unavailable Encounter Details Date Type Department Care Team Description 06/18/2004 Results Only [facility] - Danisha Choi MD [place] conversion [address] [place] [address] [place] [address] Social History Tobacco Use Types Packs/Day Years Used Date Never Assessed Sex Assigned at Date Recorded Not on file documented as of this encounter Plan of Treatment Not on filedocumented as of this encounter Procedures Procedure Name Priority Date/Time Associated Diagnosis Comme nts CYTOPATHOLOGY Routine 06/18/2004 0:00 EST Results for this procedure are i n the results section . documented in this encounter Results CYTOPATHOLOGY (06/18/2004 0:00 EST) Pathology Report: CYTOPATHOLOGY REPORT [facility] Reports generated via electronic interface contain estee ginal data; however they are lacking the format of the original re port. Caution should be taken when reading/interpreting unfo rmatted reports. Name: ? BRETT BERRIOS ? Accession #: ? [id number] : ? 1975 (Age: 28) ??F ?Collect Date: ? 09/2003 Location: ? [facility] ? Receive Date : ? 06/20/2004 Provider: ?ALEX CHOI MD Copy to: ? Specimen/Source: ?ThinPrep Pap Test, Cervix/ Endocervix Last Menstrual Period: ? Sept. 03 Other: ? HPVA - HPV testing requested if ASC-US on the current ThinPrep Pap test. ? SPECIMEN ADEQUACY ? Satisfactory for Evaluation - transformation zone component present GENERAL CATEGORIZATION ? Negative for Intraepithelial Lesion or Malignan cy ? Document reviewed and electronically signed by: ? DANGELO Colón(ASCP) ? Report Date: ??06/25/2004 07:06 End of Report Specimen Performing Organization Address City/State/ZIP Code Phon e Number [facility] [address] [place] [phone] SERVICES [facility] [address] [place] [address] documented in this encounter Visit Diagnoses Not on filedocumented in this encounter
--- OUTSIDE RECORDS SUMMARY | 2022-03-11 11:41 | XMS_ITS | Encounter Summary ---
:1975 Author Organization [facility] Address [place] [id number] Care Team Providers Name Role Phone Cristine Howard MD Primary Care Provider Encounter Details Date Type Department Care Team Description 02/14/2019 Telephone Ophthalmology at [facility] Kim Avilez, [facility] [place] [address] [facility] [phone] OPHTHALMOLOGY [place], [place] [address] (Wo rk) Social History Tobacco Use Types Packs/Day Years Used Date Never Smoker Smokeless Tobacco: Never Used Alcohol Use Standard Drinks/Week Comments Yes 0 (1 standard drink = 0.6 oz pure alcoho l) Sex Assigned at Date Recorded Not on file documented as of this encounter Miscellaneous Notes Telephone Encounter - Nilda Carias - 02/15/2019 3:30 PM EDT Called and spoke with patient about what lens she would like for cataract sx. She would like to go with the TORIC option for both eyes. Patient expressed understanding between the two different lens choices and knows that she has to pay an additional cost for the TORIC lens. Telephone Encounter - Sheyla Guaman - 02/14/2019 9:56 AM EDT Patient returned Ilan call about the lenses for surgery. Please call her back at [phone]. Thanks documented in this encounter Plan of Treatment Not on filedocumented as of this encounter Visit Diagnoses Not on filedocumented in this encounter Care Teams Scientific Database Curator Relationship Specialty Start Date End Date Cristine Howard MD PCP - General Family Medicine 10/15/18 [address] [place] [address] documented as of this encounter
--- OUTSIDE RECORDS SUMMARY | 2022-03-11 11:41 | XMS_ITS | Encounter Summary ---
:1975 Author Organization [facility] Address [address] [place] [address] Care Team Providers Name Role Phone Unavailable Primary Care Provider Unavailable Encounter Details Date Type Department Care Team Description 01/06/2007 Results Only [facility] - Aidan Rodirguez MD conversion [address] [place] [address] Social History Tobacco Use Types Packs/Day Years Used Date Never Assessed Sex Assigned at Date Recorded Not on file documented as of this encounter Plan of Treatment Not on filedocumented as of this encounter Procedures Procedure Name Priority Date/Time Associated Comments Diagnosis HPV DETECTION, HIGH Routine 01/06/2007 7:47 Resul ts for this RISK TYPES EDT procedure are i n the results section. CYTOPATHOLOGY Routine 01/06/2007 0:00 Results for this EDT procedure are i n the results section. documented in this encounter Results HUMAN PAPILLOMA VIRUS DNA TEST (01/06/2007 7:47 EDT) Specimen Description Cervix, ThinPrep [facility] vial Result Negative for HPV [facility] types 16, 18, 31, 33, 35, 39, 45, 51, 52, 56, 58, 59, and 68. Report Status Final [facility] [id number] Specimen Performing Organization Address City/State/ZIP Code Phon e Number [facility] [address] [place] [address] SERVICES [facility] [address] [place] [address] CYTOPATHOLOGY (01/06/2007 0:00 EDT) Pathology Report: CYTOPATHOLOGY REPORT [facility] Reports generated via electronic interface contain estee ginal data; however they are lacking the format of the original re port. Caution should be taken when reading/interpreting unfo rmatted reports. Name: ? BRETT BERRIOS ? Accession #: ? [id number] : ? 1975 (Age: 31) ??F ?Collect Date: ? 12/16 Location: ? [facility] ? Receive Date : ? 01/08/2007 Provider: ?AIDAN BAY MD Copy to: ? Specimen/Source: ? ThinPrep Pap Test, Cervix/Endocervix, processed on [employer] ThinPrep Imaging System, with manual evaluation Last Menstrual Period: ? 12/30/06 Other: ? HPVDX - HPV testing requested regardless of diag nosis on current ThinPrep Pap test. ? SPECIMEN ADEQUACY ? Satisfactory for Evaluation - transformation zone component present GENERAL CATEGORIZATION ? Negative for Intraepithelial Lesion or Malignan cy ? Document reviewed and electronically signed by: ? DANGELO Colón(ASCP) ? Report Date: ??01/13/2007 13:05 End of Report Specimen Performing Organization Address City/State/ZIP Code Phon e Number [facility] [address] [place] [address] SERVICES [facility] [address] [place] [address] documented in this encounter Visit Diagnoses Not on filedocumented in this encounter
--- OUTSIDE RECORDS SUMMARY | 2022-03-11 11:41 | XMS_ITS | Encounter Summary ---
:1975 Author Organization [facility] [place] [address] Care Team Providers Name Role Phone Cristine Howard MD Primary Care Provider Reason for Visit Reason Comments Eye Problem Blurred Vision Cataract Encounter Details Date Type Department Care Team Description 10/15/2018 Office Visit Ophthalmology at [facility] Marguerite Walsh, Age-related nuclear cataract of both eyes; [facility] OD Astigmatism of both eyes [place] [address] [place] [address] [place], [place] [address] Social History Tobacco Use Types Packs/Day Years Used Date Never Smoker Smokeless Tobacco: Never Used Alcohol Use Standard Drinks/Week Comments Yes 0 (1 standard drink = 0.6 oz pure alcoho l) Sex Assigned at Date Recorded Not on file documented as of this encounter Progress Notes Marguerite Walsh, OD - 10/15/2018 8:30 AM EST Kim Fallon is a 42 y.o. female who had concerns including Eye Problem; Blurred Vision; and Cataract. Assessment: 1) Visually significant cataracts OD >> OS * VA OD 20/80, DAMIAN 20/25 * VA OS 20/30, DAMIAN 20/25 * Macula OCT (10/15/18) all retinal layers intact without visually limiting pathology OU * Denies: trauma, oral steroids, DM * (+) FHx early cataracts, father * Pentacam (10/15/18) normal corneal topography without KCN OU 2) Refractive error / presbyopia OU Plan: 1) Refer for cataract surgery evaluation. Pt understands appointment is for consultation and surgerywill not be performed same day as consult. 2) Hold off. Follow up: cataract surgery consult, next available doctor. documented in this encounter Plan of Treatment Not on filedocumented as of this encounter Procedures Procedure Name Priority Date/Time Associated Diagnosis Comme nts PENTACAM - CLINIC - Routine 10/15/2018 9:45 AM Age-related nuc lear Results for this OU - BOTH EYES EST cataract of both procedure are in eyes the results section. OCT RETINA - OU - Routine 10/15/2018 9:44 AM Age-related nucle ar Results for this BOTH EYES EST cataract of both procedure a re in eyes the results section. documented in this encounter Results PENTACAM - OU- BOTH EYES (10/15/2018 9:45 AM EST) Anatomical Region Laterality Modality Other Specimen (Source) Anatomical Location Collection Method / Collectio n Time Received Time / Laterality Volume Narrative 10/15/2018 9:45 AM EST This result has an attachment that is no t available. 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
== END 2022-03-11 11:20 | disposition home or self-care (01) ==
LOC: LBN 11:19
PROVIDERS: PCP Student in an Organized Health Care Education/Training Program; Visit Provider Obstetrics & Gynecology
DX: N85.00 Endometrial hyperplasia, unspecified (principal); N93.8 Other specified abnormal uterine and vaginal bleeding
CPT/HCPCS: 88305

== ENCOUNTER 2022-03-25 20:21 | Outpatient (REF) | payer BC, SELFPAY ==
[2022-03-26 13:41] LABS: Chlamydia Result Negative (Negative); GC Result Negative (Negative)
== END 2022-03-25 20:22 | disposition home or self-care (01) ==
LOC: LBN 20:21
PROVIDERS: PCP Student in an Organized Health Care Education/Training Program; Visit Provider Obstetrics & Gynecology
DX: Z11.3 Encounter for screening for infections with a predominantly sexual mode of transmission (principal)
CPT/HCPCS: 87491; 87591

== ENCOUNTER → 2022-07-24 00:43 | Outpatient (CLI) | payer BC, SELFPAY ==
--- NOTE | 2022-07-24 07:00 | DI.MAMMO_ITS ---
Exam(s) MAMMO DIAGNOSTIC UNI EXAM: MAMMO DIAGNOSTIC UNI CLINICAL HISTORY: 6 month follow up,r92.8, rt breast cyst, n60.01. TECHNIQUE: Craniocaudal and mediolateral oblique Full Field Digital Mammography views of the right b reast with Computer Aided Diagnosis followed by Tomosynthesis. COMPARISON: Comparison is made with prior examinations. FINDINGS: Mammography/Tomosynthesis: Masses/Architectural Distortion: None seen. Microcalcifictions: No suspicious pleomorphic-type are seen. Skin Thickening/Nipple Retraction: None. IMPRESSION: 1. No evidence of malignancy is noted. 2. Unless there is more urgent need, follow-up screening mammography is recommended, as per [place] [employer] guidelines. 3. The findings were discussed with the patient on the date of the examination. BI-RADS Category 1 - Negative Breast Density - Category C - Heterogeneously dense Breast density Category C or D implies that the patient has dense breast tissue. Dense breast tissue can make it harder to find cancer on a mammogram. Dense breast tissue is also associated with an incr eased risk of breast cancer. This information about the result of the mammogram report was provided to the patient to raise their awareness. Use this report when you speak with the patient about their risks for breast cancer, which includes their family history. At that time, you may recommend additional screening tests (Ultrasoun d or MRI) as these tests may add significant information. A negative radiographic report should not delay biopsy if a dominant or clinically suspicious mass is present. Up to ten percent of cancers are not identified on mammography. A negative report may reinforce clinical impression. Adenosis and dense breasts may obscure an underlying neoplasm. False positive reports average 6 to 10%. Patient will receive a letter notifying them of these results.
== END ==
PROVIDERS: PCP Student in an Organized Health Care Education/Training Program; Visit Provider Student in an Organized Health Care Education/Training Program
DX: N60.01 Solitary cyst of right breast (principal); R92.8 Other abnormal and inconclusive findings on diagnostic imaging of breast
CPT/HCPCS: 77061; 77065; G0279

== ENCOUNTER → 2023-07-28 00:42 | Outpatient (CLI) | payer BC, SELFPAY ==
--- NOTE | 2023-07-28 15:00 | DI.MAMMO_ITS ---
Exam(s) MAMMO SCREENING EXAM: MAMMO SCREENING CLINICAL HISTORY: screening TECHNIQUE: Bilateral full field digital CC and MLO mammographic images were obtained with 3D tomosyn thesis and utilizing computer aided detection (CAD). COMPARISON: Available for comparison. FINDINGS: Masses/Architectural Distortion: There is a new 8 mm nodule in the central lower right breast. No ar eas of architectural distortion are seen. Microcalcifications: No suspicious pleomorphic-type are seen. Skin Thickening/Nipple Retraction: None. IMPRESSION: 1. New 8 mm nodule in the lower central right breast. 2. This area should be further evaluated with spot compression view. Limited right breast ultrasound may be indicated at that time. BI-RADS Category 0 - Assessment Incomplete: Need additional imaging evaluation Breast Density - Category C - Heterogeneously dense Breast density category C or D implies that the patient has dense breast tissue. Dense breast tissue is very common and is not abnormal but dense breast tissue can make it harder to find cancer on a ma mmogram. Also, dense breast tissue may increase their breast cancer risk. This information about the result of the mammogram report was provided to the patient to raise their awareness. Use this report when you speak with the patient about their risks for breast cancer, which includes their family hist ory. At that time, you may recommend for more screening tests (Ultrasound or MRI) as they might be us eful based on their risk. A negative radiographic report should not delay biopsy if a dominant or clinically suspicious mass is present. Up to ten percent of cancers are not identified on mammography. A negative report may reinforce clinical impression. Adenosis and dense breasts may obscure an underlying neoplasm. False positive reports average 6 to 10%. Patient will receive a letter notifying them of these results.
== END ==
PROVIDERS: PCP Student in an Organized Health Care Education/Training Program; Visit Provider Obstetrics & Gynecology
DX: Z12.39 Encounter for other screening for malignant neoplasm of breast (principal); N63.14 Unspecified lump in the right breast, lower inner quadrant
CPT/HCPCS: 77063; 77067

== ENCOUNTER → 2023-08-03 00:31 | Outpatient (CLI) | payer BC, SELFPAY ==
--- NOTE | 2023-08-03 | DI.MAMMO_ITS ---
Exam(s) MG MAMMO SCREEN CALL BACK UNI US BREAST RT LIMITED EXAM: MG MAMMO SCREEN CALL BACK UNI and U/S breast RT limited CLINICAL HISTORY: F/U MAMMO,NEW 8 MM RT NODULE. TECHNIQUE: Craniocaudal and mediolateral oblique Full Field Digital Mammography views of the right b reast with Computer Aided Diagnosis followed by Tomosynthesis and right breast ultrasound. COMPARISON: Comparison is made with prior examinations. FINDINGS: Mammography/Tomosynthesis: Masses/Architectural Distortion: There are 2 well-circumscribed nodules seen in the lower inner quadr ant of the right breast. No areas of architectural distortion are seen. Microcalcifictions: No suspicious pleomorphic-type are seen. Skin Thickening/Nipple Retraction: None. Limited right breast US: Echotexture: Normal appearance of the glandular tissue. Shadowing: No suspicious foci. Cyst: At the 5 o'clock position of the right breast there is a 0.5 cm simple cyst present 1 cm from t he nipple. This would appear to correspond to the mammographic abnormality. There is a collection o f cysts seen at the 4 o'clock position of the right breast 2 cm from the nipple measuring 0.7 cm in a ggregate. This would also appear to correspond to the mammographic abnormality. Solid lesions: None seen. Ductal dilation: None. IMPRESSION: 1. No evidence of malignancy is noted. 2. Unless there is more urgent need, follow-up screening mammography is recommended, as per [employer] guidelines. 3. The findings were discussed with the patient on the date of the examination. BI-RADS Category 2 - Benign Findings Breast Density - Category C - Heterogeneously dense Breast density Category C or D implies that the patient has dense breast tissue. Dense breast tissue can make it harder to find cancer on a mammogram. Dense breast tissue is also associated with an incr eased risk of breast cancer. This information about the result of the mammogram report was provided to the patient to raise their awareness. Use this report when you speak with the patient about their risks for breast cancer, which includes their family history. At that time, you may recommend additional screening tests (Ultrasoun d or MRI) as these tests may add significant information. A negative radiographic report should not delay biopsy if a dominant or clinically suspicious mass is present. Up to ten percent of cancers are not identified on mammography. A negative report may reinforce clinical impression. Adenosis and dense breasts may obscure an underlying neoplasm. False positive reports average 6 to 10%. Patient will receive a letter notifying them of these results.
== END ==
PROVIDERS: PCP Student in an Organized Health Care Education/Training Program; Visit Provider Obstetrics & Gynecology
DX: Z12.31 Encounter for screening mammogram for malignant neoplasm of breast (principal); N60.01 Solitary cyst of right breast
CPT/HCPCS: 76642; 77063; 77067

== ENCOUNTER 2024-07-25 14:01 | Outpatient (CLI) | payer BC, SELFPAY | END 2024-07-25 14:02 | disposition home or self-care (01) | LOC: RT 14:01 | PROVIDERS: PCP Student in an Organized Health Care Education/Training Program; Visit Provider Student in an Organized Health Care Education/Training Program | DX: R06.83 Snoring (principal); R51.9 Headache, unspecified; G89.29 Other chronic pain | CPT/HCPCS: 94762 ==

== ENCOUNTER 2024-08-03 02:45 | Outpatient (CLI) | payer BC, SELFPAY ==
--- NOTE | 2024-08-03 06:15 | DI.MAMMO_ITS ---
Exam(s) MAMMO SCREENING EXAM: MAMMO SCREENING CLINICAL HISTORY: screening,z12.39 TECHNIQUE: Bilateral full field digital CC and MLO mammographic images were obtained with 3D tomosyn thesis and utilizing computer aided detection (CAD). COMPARISON: Available for comparison. FINDINGS: Masses/Architectural Distortion: No new or suspicious masses are seen. No areas of architectural dis tortion are present. Microcalcifications: No suspicious pleomorphic-type are seen. Skin Thickening/Nipple Retraction: None. IMPRESSION: 1. No significant interval change with no specific features of malignancy noted. 2. Unless there is more urgent need, screening mammography is recommended, as per [employer] guidelines. BI-RADS Category 1 - Negative Breast Density - Category C - Heterogeneously dense Breast density category C or D implies that the patient has dense breast tissue. Dense breast tissue is very common and is not abnormal but dense breast tissue can make it harder to find cancer on a ma mmogram. Also, dense breast tissue may increase their breast cancer risk. This information about the result of the mammogram report was provided to the patient to raise their awareness. Use this report when you speak with the patient about their risks for breast cancer, which includes their family hist ory. At that time, you may recommend for more screening tests (Ultrasound or MRI) as they might be us eful based on their risk. A negative radiographic report should not delay biopsy if a dominant or clinically suspicious mass is present. Up to ten percent of cancers are not identified on mammography. A negative report may reinforce clinical impression. Adenosis and dense breasts may obscure an underlying neoplasm. False positive reports average 6 to 10%. Patient will receive a letter notifying them of these results.
== END 2024-08-03 03:05 ==
LOC: DI 02:45
PROVIDERS: PCP Student in an Organized Health Care Education/Training Program; Visit Provider Student in an Organized Health Care Education/Training Program
DX: Z12.31 Encounter for screening mammogram for malignant neoplasm of breast (principal); R92.333 Mammographic heterogeneous density, bilateral breasts
CPT/HCPCS: 77063; 77067

== ENCOUNTER 2024-08-03 04:32 | Outpatient (CLI) | payer BC, SELFPAY ==
[2024-08-03 10:42] LABS: Anion Gap 7.8 mmol/L (3-11); BUN 15 mg/dL (7-18); CO2 27.2 mmol/L (21.0-32.0); CREATININE 0.9 mg/dL (0.55-1.02); Calcium 9.1 mg/dL (8.5-10.1); Calculated LDL 129 mg/dL (<100); Chloride 105 mmol/L (98-107); Cholesterol 224 mg/dL (<200); Estimated GFR 77.88 (mL/min/1.73m2); Glucose 80 mg/dL (74-106); HDL Cholesterol 77 mg/dL (40-60); Potassium 4.3 mmol/L (3.5-5.1); Sodium 140 mmol/L (136-145); TSH (W/Ref FT4) 0.94 uIU/mL (0.36-3.74); Triglyceride 92 mg/dL (<150); Vitamin D 25 Total 39.4 ng/mL (30-100)
== END 2024-08-03 04:33 | disposition home or self-care (01) ==
LOC: LBO 04:32
PROVIDERS: PCP Student in an Organized Health Care Education/Training Program; Referring Provider Student in an Organized Health Care Education/Training Program; Visit Provider Student in an Organized Health Care Education/Training Program
DX: I10 Essential (primary) hypertension (principal); R03.0 Elevated blood-pressure reading, without diagnosis of hypertension; G43.109 Migraine with aura, not intractable, without status migrainosus; F41.1 Generalized anxiety disorder; Z13.220 Encounter for screening for lipoid disorders; K90.9 Intestinal malabsorption, unspecified
CPT/HCPCS: 36415; 80048; 80061; 82306; 84443